=== PATIENT | male | born 1945 | race Caucasian/White ===

== ENCOUNTER → 2023-02-12 | Outpatient (CLI) | payer OTHER ==
--- NOTE | 2023-02-12 21:13 | Diagnostic Imaging Report ---
INDICATION: LEFT KNEE PAIN TECHNIQUE: Bilateral PA weightbearing, single AP, lateral and sunrise views of the left knee CORRELATION STUDY: None FINDINGS: Right knee demonstrates mild joint space narrowing medially. Lateral compartment is maintained. There is marked joint space narrowing medially with essentially complete absence of joint space. Rather prominent marginal osteophyte formation noted both medially and laterally. There is some irregularity of the articular surface along the particularly medial femoral condyle. Question small intra-articular calcified loose body. Rather significantly advanced degenerative changes with osteophyte formation distal anterior femur as well as superior and inferior pole of left patella. Small suprapatellar joint effusion. IMPRESSION: 1. Rather significantly advanced tricompartment degenerative changes left knee. Dictated by: Dictated on workstation # [id number]
== END ==
LOC: RAD FS 14:23
PROVIDERS: ATTEND Nurse Practitioner Primary Care
DX: M17.12 Unilateral primary osteoarthritis, left knee (principal)
CPT/HCPCS: 73564

== ENCOUNTER → 2023-07-04 | Outpatient (CLI) | payer OTHER ==
--- NOTE | 2023-07-04 14:34 | Diagnostic Imaging Report ---
EXAMINATION: Chest 2 view HISTORY: PRE SURGERY TESTING COMPARISON: None available. FINDINGS: Heart size and pulmonary vasculature are normal. The lungs are clear without consolidation, pleural effusion, or pneumothorax. Degenerative changes of the thoracic spine. Osseous structures are otherwise intact. IMPRESSION: 1. No acute radiographic abnormality in the chest. Dictated by: Dictated on workstation # [id number]
[2023-07-04 14:43] LABS: BASOPHILS % (AUTO) 0 % (0-10); EOSINOPHILS # (AUTO) 0.1 10^3/uL (0.0-0.3); EOSINOPHILS % (AUTO) 1 % (0-10); HEMATOCRIT 40 % (40-54); LYMPHOCYTES # (AUTO) 2.4 10^3/uL (1.0-4.0); LYMPHOCYTES % (AUTO) 24 % (12-44); MEAN CORPUSCULAR HEMOGLOBIN 29 pg (25-34); MEAN CORPUSCULAR HGB CONC 35 g/dL (32-36); MEAN CORPUSCULAR VOLUME 85 fL (80-99); MEAN PLATELET VOLUME 9.8 fL (9.0-12.2); MONOCYTES # (AUTO) 0.8 10^3/uL (0.0-1.0); MONOCYTES % (AUTO) 8 % (0-12); NEUTROPHILS # (AUTO) 6.7 10^3/uL (1.8-7.8); NEUTROPHILS % (AUTO) 67 % (42-75); PLATELET COUNT 244 10^3/uL (130-400)
[2023-07-04 14:54] LABS: CLARITY,URINE SLIGHTLY CLOUDY; COLOR,URINE YELLOW; PH,URINE 7.5 (5-9); PROTEIN,URINE 1+ (NEGATIVE)
[2023-07-04 14:55] LABS: POTASSIUM 3.4 MMOL/L (3.6-5.0)
[2023-07-04 14:55] LABS: AMORPHOUS SEDIMENT,UR RARE AMOR PHOSPHATE /LPF; BACTERIA,URINE MODERATE /HPF; BILIRUBIN,URINE NEGATIVE (NEGATIVE); GLUCOSE, URINE (UA) NEGATIVE (NEGATIVE); KETONES,URINE NEGATIVE (NEGATIVE); LEUKOCYTE ESTERASE ,URINE 3+ (NEGATIVE); NITRITE,URINE NEGATIVE (NEGATIVE); WBC,URINE >100 /HPF
[2023-07-04 14:56] LABS: CALCIUM 9.2 MG/DL (8.5-10.1)
[2023-07-04 15:01] LABS: CREATININE SERUM 0.98 MG/DL (0.60-1.30)
== END ==
LOC: RAD 14:02
PROVIDERS: ATTEND Orthopaedic Surgery
DX: Z01.89 Encounter for other specified special examinations (principal); M17.12 Unilateral primary osteoarthritis, left knee
CPT/HCPCS: 36415; 71046; 80048; 81000; 85025; 87077; 87088; 87186

== ENCOUNTER → 2023-07-16 | Outpatient (CLI) | payer OTHER ==
[~2023-07-16] MED LIST: APIX5TAB PO; AZEL23SP2 NS; DILT240T10 PO; FINA5TAB6 PO; HYDR25TA4 PO; PRAV40TA2 PO; TMSL.4C PO
--- NOTE | 2023-07-16 10:14 | Diagnostic Imaging Report ---
PROCEDURE: CT left lower extremity without contrast. TECHNIQUE: Multiple contiguous axial images were obtained through the left lower extremity without the use of intravenous contrast. Sagittal and coronal reformations were then performed. Auto Exposure Controls were utilized during the CT exam to meet ALARA standards for radiation dose reduction. INDICATION: Degenerative joint disease of the left knee. Left knee pain. COMPARISON: 02/12/2023. FINDINGS: Advanced degenerative changes are present in the left knee with joint space narrowing, marginal osteophytes, and subchondral sclerosis. No acute fracture or dislocation. Wfszj-db-hsvzpnrt joint effusion is present in the left knee. No suspicious focal osseous lesions. The left hip demonstrates normal alignment. No focal osseous lesions. The included pelvis demonstrates a partially visualized bladder calculus within a distended bladder. The prostate is enlarged. Views of the left ankle are normal without acute fracture or dislocation. IMPRESSION: 1. Advanced osteoarthritis in the left knee. Rxemj-ht-ujlzjxxn left knee joint effusion is present. 2. Prostatomegaly. 3. Partially visualized bladder calculus within a distended urinary bladder. 4. No acute fracture or dislocation in the included left lower extremity. Dictated by: Dictated on workstation # [id number]
== END ==
LOC: RAD 07:32
PROVIDERS: ATTEND Orthopaedic Surgery
DX: M17.12 Unilateral primary osteoarthritis, left knee (principal); N40.0 Benign prostatic hyperplasia without lower urinary tract symptoms; N21.0 Calculus in bladder
CPT/HCPCS: 73700

== ENCOUNTER → 2023-07-16 | Outpatient (CLI) | payer OTHER ==
[~2023-07-16] VITALS: Ht 177.8 cm; Wt 84.6 kg
[2023-07-16 08:40] VITALS: BP 132/86
== END | disposition home or self-care (01) ==
LOC: PREOP 08:11
PROVIDERS: ATTEND Orthopaedic Surgery
DX: Z01.818 Encounter for other preprocedural examination (principal)
CPT/HCPCS: 87081; 93005

== ENCOUNTER 2023-07-23 06:10 | Day surgery (SDC) | payer OTHER ==
[~2023-07-23] VITALS: Ht 177.8 cm; Wt 84.6 kg
[2023-07-23] VITALS (13 sets, daily range): BP systolic 81–153; BP diastolic 48–96
[2023-07-23] MEDS ORDERED: ceFAZolin INJECTION 2,000 MG in NS (IVPB) 50 ML 50 ML IV ONE (06:15)
[2023-07-23] MEDS ORDERED: MIDAZOLAM INJ 2 MG/2 ML VIAL ONE (07:00)
[2023-07-23] MEDS ORDERED: fentaNYL INJECTION 100 MCG/2 ML VIAL ONE (07:02)
[2023-07-23] MEDS ORDERED: BUPIVACAINE 0.5% 30 ML VIAL ONE (07:02)
[2023-07-23] MEDS: LACTATED RINGERS 1,000 ML 1,000 ML IV PRN ×4 (07:11→13:25)
--- NOTE | 2023-07-23 07:13 | Progress Note-Pre Operative ---
Pre-Operative Progress Note Date of Available H&P: Jun 28, 2023 Date H&P Reviewed: Jul 23, 2023 Time H&P Reviewed: 07:05 History & Physical: H&P Reviewed, Patient Examed, No changes noted Pre-Operative Diagnosis: Left Knee Primary Osteoarthritis KRERY DICK MD Jul 23, 2023 07:13
[2023-07-23] MEDS ORDERED: TRANEXAMIC ACID 100 MG/ML 10 ML INJECTION ONE (08:08)
[2023-07-23] MEDS ORDERED: ROPIVACAINE 5 MG/ML 30ML VIAL ONE (08:31)
[2023-07-23] MEDS ORDERED: ONDANSETRON INJECTION 4 MG/2 ML (SDV) ONE (09:29)
[2023-07-23] MEDS ORDERED: ONDANSETRON INJECTION 4 MG/2 ML (SDV) IVP PRN (11:00)
[2023-07-23] MEDS ORDERED: morphine INJ 10 MG/ML 1ML (SYR OR VIAL) IVP ONE (11:00)
[2023-07-23] MEDS ORDERED: fentaNYL INJECTION 100 MCG/2 ML VIAL IVP ONE (11:00)
--- NOTE | 2023-07-23 11:03 | Operative Report - Ortho ---
Operative Report Surgeon (s)/Computer Forensic Specialist (s) Surgeon KERRY DICK MD Computer Forensic Specialist n/a Pre-Operative Diagnosis Left Knee Primary Osteoarthritis Post-Operative Diagnosis same Operative Report Date of Procedure: Jul 23, 2023 Name of Procedure Performed: Robotic Assisted Left Total Knee Arthroplasty Description & Findings After obtaining informed consent and marking the patient in the preoperative holding area, the patient did receive IV antibiotics. Patient was taken to the operating room and anesthesia was induced. Surgical timeout was taken. The left lower extremity was prepped and draped in the usual sterile fashion. Incision was made and carried down to fascia. Arthrotomy was performed on the medial side of the patella. Patella was retracted laterally and knee was flexed. Found to have circumferential osteophtye around the distal femur as well as exposed bone in the medial compartment. ACL and anterior horns of the menisci were removed. 3.2 mm pins were placed in the medial femoral condyle for the femoral array and checkpoint was placed next to the pins. 3.2 mm pins were placed in the proximal tibia and checkpoint was placed there as well. Arrays were placed and tightened into position. The femur and tibia were then registered. Osteophytes were removed. The knee was then tensioned with varus and valgus stress in extension and flexion. Measurements were captured and adjustments were made to the preoperative plan to balance the flexion and extension gaps. Robotic arm was brought into position and all femoral cuts as well as the tibial cut were performed. Bone blocks were removed. Lamina drafter chief design was placed and the remainder of the mensici as well as posterior osteophytes were removed. The knee was trialed with a size 5 femur and a size 5 tibia with a 9 mm poly trial. It was found to come out to full extension and flexed beyond 120 degrees. It was stable to varus and valgus stress throughout its range of motion. This was accepted. Knee was brought out into extension and the patella was prepared for an inset patellar button. Osteophytes were removed from around the perimeter of the patella. Patella tracked well through the trochlear groove of the femur. Lug holes were drilled in the distal femur. Trial implants were removed. Tibial tray was pinned and punched. The cut bone surfaces were lavaged with pulsatile normal saline. Cement was mixed. Implants were opened and assembled on the back table. Cement was applied to the cut bone surface as well as the implant. A size 5 tibial component was impacted into place; excess cement was removed using the freer. A size 5 femoral component was impacted into place and excess cement was removed using a freer. Tibial tray was lavaged with saline. A 10 mm thick polyethylene component was locked into placed and the locking mechanism was checked. Knee was brought into extension. Irrisept soak was performed and then, the knee was irrigated with normal saline. The knee was once again trialed; found to come to full extension, flexed beyond 120 degrees, and was stable to varus and valgus stress. Tourniquet was dropped and electrocautery was used for hemostasis. Fascial layer was closed with #2 Stratafix. The subcutaneous layer was closed with 2-0 Vicryl. The skin was closed with barbara. Wound was dressed with xeroform, 4x4s, ABD, webril, and LADI wrap. Patient tolerated the procedure well and was stable to the recovery room. Anesthesia Type Spinal Estimated Blood Loss 150 mL Specimen(s) collected/removed None KERRY DICK MD Jul 23, 2023 11:03
[2023-07-23] MEDS ORDERED: BISACODYL 5 MG TABLET PO PRN (11:15)
[2023-07-23] MEDS ORDERED: ACETAMINOPHEN 500 MG TABLET PO PRN (11:15)
[2023-07-23] MEDS ORDERED: morphine INJ 4 MG/ML 1 ML (VIAL/SYRINGE) IVP PRN (11:15)
[2023-07-23] MEDS ORDERED: MILK OF MAGNESIA 400 MG/5 ML 30 ML UDC PO PRN (11:15)
[2023-07-23] MEDS ORDERED: GLYCOPYRROLATE INJ 0.2 MG/ML 2 ML VIAL ONE (11:39)
--- NOTE | 2023-07-23 12:50 | Diagnostic Imaging Report ---
EXAMINATION: Left knee radiographs. EXAM DATE: 07/23/2023 11:23 AM. COMPARISON: 02/12/2023. HISTORY: Post operative evaluation. TECHNIQUE: 2 views. FINDINGS: Surgical changes from total left knee arthroplasty. No acute fracture is seen. Hardware is in good alignment. Surgical changes of the overlying soft tissues. Small joint effusion, likely post operative. IMPRESSION: Surgical changes of the left knee without acute osseous abnormality. Hardware in good alignment. Dictated by: Dictated on workstation # [id number]
[2023-07-23] MEDS: NS IV 1000 ML 1,000 ML IV SCH ×2 (13:26→21:32)
--- NOTE | 2023-07-23 13:26 | Consultation ---
RICKIMARGOTHTIMI 07/23/23 1326: HPI History of Present Illness: HPI/Chief Complaint CC: s/p total knee arthroplasty HPI: Mr. Chandra is a 78 y/o male presenting s/p total knee arthroplasty 07/[address] Gutierrez. Pt was lying in bed when I saw him today. He is doing well with minimal pain. He denies any SOB or chest pain. A garcia catheter is in place and he has not had a bowel movement since surgery this morning. He reports a PMH of HTN and cardiac issues that are not fully detailed at this point in time. Pt has no concerns today regarding his medical management. Date Seen 07/23/23 Attending Physician No,Local Physician PCP Admitting Physician: Attending Physician: Alexx Gutierrez MD Referring Physician Date of Admission Home Medications & Allergies Home Medications Reviewed patient Home Medication Reconciliation performed by pharmacy medication reconciliations fill technician and/or nursing. Patients Allergies have been reviewed. Allergies Allergies Coded Allergies lisinopril (Verified Adverse Reaction, Unknown, 07/16/23) cough Past Nsqcptl-Xqfnqu-Knmosu Hx Patient Social History Tobacco Use?: No Smoking Status: Never a Smoker Substance use?: No Alcohol Use?: No Seasonal Allergies Seasonal Allergies: Yes Current Status Advance Directives: No Communicates: Verbally Primary Language: Greek Is interpretation needed?: No Sensory deficits: Vision impairment Implanted or Applied Medical D: None Past Medical History Surgeries: Orthopedic Currently Using CPAP: No Currently Using BIPAP: No Atrial Fibrillation, High Cholesterol, Hypertension Sexually Transmitted Disease: No HIV/AIDS: No Kidney Stones Arthritis Loss of Vision: Bilateral Hearing Impairment: Denies Blood Disorders: No Review of Systems Constitutional: No chills, No dizziness, No fever EENTM: no symptoms reported Respiratory: No cough, No short of breath Cardiovascular: No chest pain, No palpitations Gastrointestinal: no symptoms reported Musculoskeletal: see HPI Psychiatric/Neurological: Denies Headache Physical Exam Physical Exam Vital Signs Vital Signs - First Documented 07/23/23 06:20 Temp 36.6 Pulse 102 Resp 18 B/P (MAP) 145/96 (112) Pulse Ox 97 Capillary Refill : Less Than 3 Seconds Height, Weight, BMI Height: '" Weight: lbs. oz. kg; 26.76 BMI Method: General Appearance: No Apparent Distress HEENT: PERRL/EOMI Neck: Full Range of Motion Respiratory: Chest Non Tender, Lungs Clear, Normal Breath Sounds Cardiovascular: Regular Rate, Rhythm Gastrointestinal: Non Tender Neurologic/Psychiatric: Alert, Oriented x3, Normal Mood/Affect Skin: Normal Color Results Results/Procedures Labs Patient resulted labs reviewed. Assessment/Plan Assessment and Plan Assess & Plan/Chief Complaint Assessment: 78 y/o male s/p total knee arthroplasty 07/23 Plan: Knee pain -prn pain meds Undiagnosed Cardiac complications -continue diltiazem, apixaban, pravastatin -monitor vitals HTN -continue HCTZ Urinary retention -garcia catheter in place -continue finasteride, tamsulosin KELLYMARY DO 07/24/23 1853: HPI History of Present Illness: HPI/Chief Complaint CC: Left knee replacement HPI: This is a 78yoWM clinic patient of Dr Guiterrez who presents after an uncomplicated left knee replacement. Currently he is without complaints. No nausea. Source: patient Exam Limitations: no limitations Past Vugpmlh-Chmsit-Kpvopq Hx Patient Social History Marrital Status: Employed/Student: retired Smoking Status: Never a Smoker Past Medical History Surgeries: Orthopedic Review of Systems Constitutional: see HPI Musculoskeletal: joint pain Physical Exam Physical Exam General Appearance: No Apparent Distress, WD/WN, Chronically ill Eyes: Bilateral Eye Normal Inspection, Bilateral Eye PERRL HEENT: PERRL/EOMI, Normal ENT Inspection, Pharynx Normal Neck: Full Range of Motion, Normal Inspection, Non Tender, Supple, Carotid Bruit Respiratory: Chest Non Tender, Lungs Clear, Normal Breath Sounds, No Accessory Muscle Use, No Respiratory Distress Cardiovascular: Regular Rate, Rhythm, No Edema, No Gallop, No JVD, No Murmur, Normal Peripheral Pulses Gastrointestinal: Normal Bowel Sounds, No Organomegaly, No Pulsatile Mass, Non Tender, Soft Back: Normal Inspection, No CVA Tenderness, No Vertebral Tenderness Extremity: Normal Capillary Refill, Normal Inspection, Normal Range of Motion (except left leg), Non Tender, No Calf Tenderness, No Pedal Edema Neurologic/Psychiatric: Alert, Oriented x3, No Motor/Sensory Deficits, Normal Mood/Affect Skin: Normal Color, Warm/Dry Lymphatic: No Adenopathy Assessment/Plan Assessment and Plan Assess & Plan/Chief Complaint Left knee replacement HTN Urinary retention with BPH Supervisory-Addendum Brief Verification & Attestation Participated in pt care: history, MDM, physical Personally performed: exam, history, MDM, supervision of care Care discussed with: Medical Student Procedures: n/a Results interpretation: Verified all documentation Verification and Attestation of Medical Student E/M Service A medical student performed and documented this service in my presence. I reviewed and verified all information documented by the medical student and made modifications to such information, when appropriate. I personally performed the physical exam and medical decision making. Mary Mendoza, Jul 24, 2023,18:50 TIMI ROBISON Jul 23, 2023 13:26 MARY MENDOZA DO Jul 24, 2023 18:53
[2023-07-23] MEDS: oxyCODONE IMMEDIATE RELEASE 5 MG TABLET PO PRN ×2 (13:42→20:41)
--- NOTE | 2023-07-23 14:47 | Physical Therapy Evaluation ---
PT Evaluation-General Medical Diagnosis Admission Date 07/23/23 Medical Diagnosis: LTKA Onset Date: Jul 23, 2023 Therapy Diagnosis Therapy Diagnosis: Gait training, therapeutic exercise Precautions Precautions/Isolations: Fall Prevention, Standard Precautions Weight Bear Status Right Lower Extremity: Right Full Weight Bearing Left Lower Extremity: Left Weight Bearing/Tolerated Referral Physician: Dr. Gutierrez Reason for Referral: Evaluation/Treatment Medical History Reviewed History: Yes Social History Home: Single Level Current Living Status: Spouse Entry Into Home: Stairs Without Railing PT Steps Into Home: 2 Prior Prior Level of Function SCALE: Activities may be completed with or without assistive devices. 0-Psoqnondsx-wvwipoa completes the activity by him/herself with no assistance from a helper. 5-Set-up or Clean-up Assistance-helper sets up or cleans up; patient completes activity. [place] assists only prior to or following the activity. 4-Supervision or Touching Assistance-helper provides verbal cues and/or touching/steadying and/or contact guard assistance as patient completes activity. Assistance may be provided throughout the activity or intermittently. 3-Partial/Moderate Assistance-helper does LESS THAN HALF the effort. [place] lifts, holds or supports trunk or limbs, but provides less than half the effort. 2-Substantial/Maximal Assistance-helper does MORE THAN HALF the effort. [place] lifts or holds trunk or limbs and provides more than half the effort. 5-Ouowendei-lnvjml does ALL the effort. Patient does none of the effort to complete the activity. Or, the assistance of 2 or more helpers is required for the patient to complete the activity. If activity was not attempted, code reason: 7-Patient Refused. 9-Not Applicable-not attempted and the patient did not perform the activity before the current illness, exacerbation or injury. 10-Not Attempted due to Environmental Limitations-(lack of equipment, weather restraints, etc.). 88-Not Attempted due to Medical Conditions or Safety Concerns. Bed Mobility: 6 Transfers (B,C,W/C): 6 Gait: 6 Stairs: 6 Indoor Mobility (Ambulation): Independent Stairs: Independent Prior Device Use: None PT Evaluation-Current Subjective Patient lying supine in bed upon PT arrival, agreeable to treatment. Patient rates pain at 3/10 currently in the left knee. Objective Patient Orientation: Person, Place, Time, Situation Attachments: [place] Catheter, Polar Pack, IV ROM/Strength ROM Lower Extremities Right LE WFLs all planes. Left Knee 75 degrees flexion, lacks 15 degrees extension Strength Lower Extremities Right LE 5/5 all planes. Left knee 3/5 flexion/extension. All other Left LEs 4/5 Sensory Vision: Wears Glasses Hearing: Functional Sensation Right Lower Extremit: Intact Sensation Left Lower Extremity: Intact Transfers Roll Left to Right (QC): 4 Sit to Lying (QC): 4 Lying to Sitting/Side of Bed(Q: 4 Sit to Stand (QC): 4 Chair/Pjo-tl-Prehy Xfer(QC): 4 Gait Does the Patient Walk?: Yes Mode of Locomotion: Walk Anticipated Mode of Locomotion: Walk Walk 10 feet (QC): 4 Distance: 30' Gait Assistive Device: FWW Balance Sitting Static: Good Sitting Dynamic: Good Standing Static: Good Standing Dynamic: Good Assessment/Needs Patient performs all bed mobility and transfers with SBA. Patient ambulates 30 feet with FWW, with SBA and verbal cues for progression. Patient in chair post treatment with all needs met, nursing notified, call light in hand and in the room. Rehab Potential: Good Equipment Needs FWW PT Mask Design Engineer Goals Care Home Goals PT Care Home Goals Time Frame: Aug 23, 2023 Roll Left & Right (QC): 6 Sit to Lying (QC): 6 Lying-Sitting on Side/Bed(QC): 6 Sit to Stand (QC): 6 Chair/Cza-dn-Zahlo Xfer(QC): 6 Toilet Transfer (QC): 6 Car Transfer (QC): 6 Does the Patient Walk: Yes Walk 10 feet (QC): 6 Walk 50ft with 2 Turns (QC): 6 Walk 150 ft (QC): 6 1 Step (curb) (QC): 4 4 Steps (QC): 4 PT Plan Problem List Problem List: Activity Tolerance, Functional Strength, Safety, Balance, Gait, Transfer, Bed Mobility, ROM Treatment/Plan Treatment Plan: Continue Plan of Care Treatment Plan: Bed Mobility, Education, Functional Activity Cole, Functional Strength, Group Therapy, Gait, Safety, Therapeutic Exercise, Transfers Treatment Duration: Aug 23, 2023 Frequency: 11 times per week Estimated Hrs Per Day: .25 hour per day Patient and/or Family Agrees t: Yes Safety Risks/Education Patient Education: Gait Training, Transfer Techniques Teaching Recipient: Patient Teaching Methods: Demonstration, Discussion Response to Teaching: Verbalize Understanding, Return Demonstration Time Time In: 1410 Time Out: 1430 DATE: Jul 23, 2023 Total Billed Treatment Time: 20 Total Billed Treatment Visit, CARLITO GUIDO PT Jul 23, 2023 14:47
[2023-07-23] MEDS: ceFAZolin INJECTION 2,000 MG in NS (IVPB) 50 ML 50 ML IV SCH (16:53)
[2023-07-23] MEDS: ONDANSETRON INJECTION 4 MG/2 ML (SDV) IV PRN (20:41)
[2023-07-23] MEDS: CELECOXIB 100 MG CAPSULE PO SCH (20:41)
[2023-07-23] MEDS: DOCUSATE SODIUM 100 MG CAPSULE PO SCH (20:41)
[2023-07-23] MEDS ORDERED: APIXABAN 5 MG TABLET PO SCH (21:00)
[2023-07-23] MEDS ORDERED: ceFAZolin INJECTION 2,000 MG in NS (IVPB) 50 ML 50 ML IV SCH (21:00)
[2023-07-24] VITALS (7 sets, daily range): BP systolic 112–162; BP diastolic 76–102
[2023-07-24] MEDS: ceFAZolin INJECTION 2,000 MG in NS (IVPB) 50 ML 50 ML IV SCH (00:30)
[2023-07-24] MEDS: oxyCODONE IMMEDIATE RELEASE 5 MG TABLET PO PRN ×2 (00:33→08:06)
[2023-07-24 06:03] LABS: BASOPHILS % (AUTO) 0 % (0-10); EOSINOPHILS % (AUTO) 0 % (0-10); HEMATOCRIT 36 % (40-54); HEMOGLOBIN 12.7 g/dL (13.3-17.7); LYMPHOCYTES # (AUTO) 1.3 10^3/uL (1.0-4.0); LYMPHOCYTES % (AUTO) 9 % (12-44); MEAN CORPUSCULAR HEMOGLOBIN 30 pg (25-34); MEAN CORPUSCULAR HGB CONC 35 g/dL (32-36); MEAN CORPUSCULAR VOLUME 85 fL (80-99); MEAN PLATELET VOLUME 10.2 fL (9.0-12.2); MONOCYTES # (AUTO) 1.5 10^3/uL (0.0-1.0); MONOCYTES % (AUTO) 10 % (0-12); NEUTROPHILS # (AUTO) 11.8 10^3/uL (1.8-7.8); NEUTROPHILS % (AUTO) 80 % (42-75); PLATELET COUNT 195 10^3/uL (130-400); WHITE BLOOD COUNT 14.7 10^3/uL (4.3-11.0)
[2023-07-24] MEDS: THERAPEUTIC MULTIVITAMIN W/MINERALS TABLET PO SCH (06:04)
[2023-07-24] MEDS: NS IV 1000 ML 1,000 ML IV SCH (06:05)
[2023-07-24 06:33] LABS: ALBUMIN 3.6 GM/DL (3.2-4.5); BILIRUBIN,TOTAL 0.9 MG/DL (0.1-1.0); CALCIUM 8.5 MG/DL (8.5-10.1); CREATININE SERUM 0.79 MG/DL (0.60-1.30); POTASSIUM 3.4 MMOL/L (3.6-5.0); TOTAL PROTEIN 6.2 GM/DL (6.4-8.2)
[2023-07-24 06:53] LABS: LYMPHOCYTES % (MANUAL) 8 %; NEUTROPHILS % (MANUAL) 79 %
[2023-07-24 06:54] LABS: MONOCYTES % (MANUAL) 13 %
[2023-07-24 06:55] LABS: RBC MORPH NORMAL
--- NOTE | 2023-07-24 06:59 | Anesthesia-General Post-Op ---
General Patient Condition Mental Status/LOC: Same as Preop Cardiovascular: Satisfactory Nausea/Vomiting: Absent Respiratory: Satisfactory Pain: Controlled Complications: Absent Post Op Complications Complications None Follow Up Care/Instructions Patient Instructions None needed. Anesthesia/Patient Condition Patient Condition Patient is doing well, no complaints, stable vital signs, no apparent adverse anesthesia problems. No complications reported per nursing. LEON MA CRNA Jul 24, 2023 06:59
[2023-07-24] MEDS: dilTIAZem ER 240 MG CAPSULE PO SCH (08:04)
[2023-07-24] MEDS: ONDANSETRON INJECTION 4 MG/2 ML (SDV) IV PRN (08:04)
[2023-07-24] MEDS: TAMSULOSIN 0.4 MG (FLOMAX) CAP PO SCH (08:05)
[2023-07-24] MEDS: APIXABAN 5 MG TABLET PO SCH ×2 (08:05→20:36)
[2023-07-24] MEDS: FINASTERIDE 5 MG TABLET PO SCH (08:06)
[2023-07-24] MEDS: CELECOXIB 100 MG CAPSULE PO SCH ×2 (08:06→20:36)
[2023-07-24] MEDS: DOCUSATE SODIUM 100 MG CAPSULE PO SCH ×2 (08:06→20:36)
[2023-07-24] MEDS ORDERED: NON-FORMULARY MEDICATION 1 EA EA (Diltiazem HCl (Diltiazem ER) 240 MG) PO SCH (09:00)
--- NOTE | 2023-07-24 09:09 | Occupational Therapy Eval ---
OT Evaluation-General/PLF Medical Diagnosis Admission Date Medical Diagnosis: LTKA Onset Date: Jul 23, 2023 Therapy Diagnosis Therapy Diagnosis: weakness Precautions Precautions/Isolations: Standard Precautions Weight Bear Status Weight Bearing Restriction: Weight Bearing/Tolerated Location Restriction: L LE Referral Physician: Dr. Gutierrez Referral Reason: Self Care, Evaluation/Treatment Medical History Reviewed History: Yes Social History Home: Single Level Current Living Status: Spouse Entry Into Home: Stairs Without Railing Steps Into Home: 2 ADL-Prior Level of Function SCALE: Activities may be completed with or without assistive devices. 3-Acjpseqrnf-jdjpzlb completes the activity by him/herself with no assistance from a helper. 5-Set-up or Clean-up Assistance-helper sets up or cleans up; patient completes activity. [place] assists only prior to or following the activity. 4-Supervision or Touching Assistance-helper provides verbal cues and/or touchi ng/steadying and/or contact guard assistance as patient completes activity. Assistance may be provided throughout the activity or intermittently. 3-Partial/Moderate Assistance-helper does LESS THAN HALF the effort. [place] lifts, holds or supports trunk or limbs, but provides less than half the effort. 2-Substantial/Maximal Assistance-helper does MORE THAN HALF the effort. [place] lifts or holds trunk or limbs and provides more than half the effort. 3-Jyncwzdmg-yljhmw does ALL the effort. Patient does none of the effort to complete the activity. Or, the assistance of 2 or more helpers is required for the patient to complete the activity. If activity was not attempted, code reason: 7-Patient Refused. 9-Not Applicable-not attempted and the patient did not perform the activity before the current illness, exacerbation or injury. 10-Not Attempted due to Environmental Limitations-(lack of equipment, weather restraints, etc.). 88-Not Attempted due to Medical Conditions or Safety Concerns. Self Care: Independent Functional Cognition: Independent Drive Self: Yes OT Current Status Subjective Agreeable to participate Pain Numeric Pain Scale: 4 Mental Status/Objective Patient Orientation: Person, Place, Time, Situation Attachments: Polar Pack (warm, plugged in and on. Education for use) Current Hand Dominance: Right Upper Extremity ROM BUE ROM WFLS Upper Extremity Coordination BUE FMC/GMC WFL Upper Extremity Sensation INTACT Upper Extremity Strength 4/5 grossly ADL-Treatment ADL-Current Extra time to transition from supine to sitting EOB, min assist w/ Left sock, Transfer to stand w/ VCs and FWW. Stood over toilet w/ FWW for bladder training. No voiding. Washed hands and face at sink standing w/ FWW. Ambulation to recliner and performed 10 sit/stands for mm memory sequence. Eating (QC): 6 Oral Hygiene (QC): 5 Shower/Bathe Self (QC): 7 Upper Body Dressing (QC): 4 Lower Body Dressing (QC): 4 On/Off Footwear (QC): 4 Toileting Hygiene (QC): 4 Education OT Patient Education: Correct positioning, Energy conservation, Exercise program, Modified ADL techniques, Progress toward Goal/Update tx plan, Purpose of tx/functional activities, Reviewed precautions, Rehab process, Safety issues, Transfer techniques Teaching Recipient: Patient Teaching Methods: Demonstration, Discussion Response to Teaching: Verbalize Understanding, Reinforcement Needed OT Pets [employer] Pet Supplies Salesperson Goals Pets And Pet Supplies Salesperson Goals Eating (QC): 6 Oral Hygiene (QC): 6 Toileting Hygiene (QC): 6 Shower/Bathe Self (QC): 6 Upper Body Dressing (QC): 6 Lower Body Dressing (QC): 6 On/Off Footwear (QC): 6 1=Demonstrate adherence to instructed precautions during ADL tasks. 2=Patient will verbalize/demonstrate understanding of assistive devices/modifications for ADL. 3=Patient will improve strength/tolerance for activity to enable patient to perform ADL's. OT Education/Plan Problem List/Assessment Assessment: Decreased Activ Tolerance, Impaired Funct Balance, Impaired Self- Care Skills Discharge Recommendations Plan/Recommendations: Continue POC Treatment Plan/Plan of Care Treatment,Training & Education: Yes Patient would benefit from OT for education, treatment and training to promote independence in ADL's, mobility, safety and/or upper extremity function for ADL's. Plan of Care: ADL Retraining, Functional Mobility, Group Exercise/Act as Ind, UE Funct Exercise/Act Treatment Duration: Jul 27, 2023 Frequency: 3 times per week (3-5 times week) Rehab Potential: Good Time Start Time: 08:35 Stop Time: 09:05 DATE: Jul 24, 2023 Total Time Billed (hr/min): 30 Billed Treatment Time EVM, ADL 30 min ANY VENEGAS OT Jul 24, 2023 09:09
--- NOTE | 2023-07-24 09:29 | Progress Note - Ortho ---
Progress Note Subjective Date of Exam 07/24/23 Chief Complaint POD #1 L TKA HPI/Events since last exam had some issues with pain last PM, better this AM, has worked with therapy Review of Systems - Allergies: Coded Allergies: lisinopril (Verified Adverse Reaction, Unknown, 07/16/23) cough Home Meds Reported Medications Tamsulosin HCl (Flomax) 0.4 Mg Cap, 0.4 MG PO, CAP 07/16/23 Pravastatin Sodium (Pravastatin Sodium) 40 Mg Tablet, 40 MG PO, TAB 07/16/23 Hydrochlorothiazide (Hydrochlorothiazide) 25 Mg Tablet, 25 MG PO, TAB 07/16/23 Finasteride (Finasteride) 5 Mg Tablet, 5 MG PO, TAB 07/16/23 Diltiazem HCl (Diltiazem ER) 240 Mg Tab.er.24h, 240 MG PO DAILY, TAB 07/16/23 Azelastine/Fluticasone (Azelastin-Flutic 137-50Mcg Spr) 137 Mcg-50 Mcg/[place] S pray.pump, 23 GM NS, ML 07/16/23 Apixaban (Eliquis) 5 Mg Tablet, 5 MG PO BID, TAB 07/16/23 Objective Exam L Knee: Dressing C/D/I, +DF of ankle, no s/s of DVT Vital Signs Vital Signs Date Time Temp Pulse Resp B/P (MAP) Pulse Ox O2 Delivery O2 Flow Rate FiO2 07/24/23 07:39 37.0 119 16 162/102 (122) 94 Room Air 07/24/23 03:06 37.2 108 19 140/84 (102) 95 Room Air 07/23/23 23:39 37.2 108 19 153/92 (112) 95 Room Air 07/23/23 20:19 37.2 104 19 149/85 (106) 95 Room Air 07/23/23 20:00 Room Air 07/23/23 15:35 36.3 100 18 141/81 (101) 97 07/23/23 13:00 95 Room Air 07/23/23 12:29 35.3 97 16 133/81 (98) 95 Room Air 07/23/23 12:00 36.2 20 108/67 (81) 96 Room Air 07/23/23 12:00 Room Air 07/23/23 11:50 20 107/68 (81) 95 Room Air 07/23/23 11:45 Room Air 07/23/23 11:40 20 96/48 (64) 96 Room Air 07/23/23 11:30 Room Air 07/23/23 11:30 20 81/52 (62) 96 Room Air 07/23/23 11:20 20 90/50 (63) 99 OxyMask 2.00 07/23/23 11:15 OxyMask 2.00 07/23/23 11:10 20 100/56 (71) 98 OxyMask 3.00 07/23/23 11:00 OxyMask 6.00 07/23/23 11:00 20 94/71 (79) 98 OxyMask 6.00 07/23/23 10:51 36.2 20 96/55 (69) 98 OxyMask 6.00 07/23/23 10:51 OxyMask 6.00 I & O 07/24/23 07:00 Intake Total 2760 ml Output Total 3200 ml Balance -440 ml Lab Results Laboratory Tests 07/24/23 05:18: White Blood Count 14.7H, Red Blood Count 4.27L, Hemoglobin 12.7L, Hematocrit 36L , Mean Corpuscular Volume 85, Mean Corpuscular Hemoglobin 30, Mean Corpuscular Hemoglobin Concent 35, Red Cell Distribution Width 13.2, Platelet Count 195, Mean Platelet Volume 10.2, Immature Granulocyte % (Auto) 1, Neutrophils (%) (Auto) 80H, Lymphocytes (%) (Auto) 9L, Monocytes (%) (Auto) 10, Eosinophils (%) (Auto) 0, Basophils (%) (Auto) 0, Neutrophils # (Auto) 11.8H, Lymphocytes # (Auto) 1.3, Monocytes # (Auto) 1.5H, Eosinophils # (Auto) 0.0, Basophils # (Auto) 0.0, Immature Granulocyte # (Auto) 0.1, Neutrophils % (Manual) 79, Lymphocytes % (Manual) 8, Monocytes % (Manual) 13, Blood Morphology Comment NORMAL, Sodium Level 134L, Potassium Level 3.4L, Chloride Level 101, Carbon Dioxide Level 24, Anion Gap 9, Blood Urea Nitrogen 11, Creatinine 0.79, Estimat Glomerular Filtration Rate 92, BUN/Creatinine Ratio 14, Glucose Level 134H, Calcium Level 8.5, Corrected Calcium 8.8, Total Bilirubin 0.9, Aspartate Amino Transf (AST/SGOT) 16, Alanine Aminotransferase (ALT/SGPT) 10, Alkaline Phosphatase 52, Total Protein 6.2L, Albumin 3.6 Imaging 2 views of the left knee dated 07/23/23 were reviewed from PACS and demonstrated total knee arthroplasty with components in good position Assessment and Plan Assessment Left Knee OA s/p TKA Problem List Left Knee OA s/p TKA Plan PT/OT DVT Prophylaxis (on Eliquis prior) Plan for home with home health tomorrow Final Diagonsis Left Knee OA s/p TKA Level of the visit: Level 3 (global) KERRY DICK MD Jul 24, 2023 09:29
--- NOTE | 2023-07-24 10:18 | Progress Note ---
Subjective Date Seen by a Provider: Jul 24, 2023 Time Seen by a Provider: 10:00 Subjective/Events-last exam Much improved Light headiness when standing Urination will be monitored closely Labs reviewed Review of Systems General: Fatigue, Malaise Musculoskeletal: leg pain Objective Exam Last Set of Vital Signs Vital Signs Date Time Temp Pulse Resp B/P (MAP) Pulse Ox O2 Delivery O2 Flow Rate FiO2 07/24/23 09:44 119 158/94 (115) 07/24/23 08:00 Room Air 07/24/23 07:39 37.0 16 94 07/23/23 11:20 2.00 Capillary Refill : Less Than 3 Seconds I&O Intake and Output 07/24/23 00:00 Intake Total 2510 ml Output Total 2500 ml Balance 10 ml Intake Oral 1460 ml IV Total 1050 ml Output Urine Total 2500 ml General: Alert, Oriented X3, Cooperative, No Acute Distress Lungs: Clear to Auscultation, Normal Air Movement Heart: Regular Rate, Normal S1, Normal S2, No Murmurs Psych/Mental Status: Mental Status NL, Mood NL Results Lab Laboratory Tests 07/24/23 05:18: White Blood Count 14.7H, Red Blood Count 4.27L, Hemoglobin 12.7L, Hematocrit 36L , Mean Corpuscular Volume 85, Mean Corpuscular Hemoglobin 30, Mean Corpuscular Hemoglobin Concent 35, Red Cell Distribution Width 13.2, Platelet Count 195, Mean Platelet Volume 10.2, Immature Granulocyte % (Auto) 1, Neutrophils (%) (Auto) 80H, Lymphocytes (%) (Auto) 9L, Monocytes (%) (Auto) 10, Eosinophils (%) (Auto) 0, Basophils (%) (Auto) 0, Neutrophils # (Auto) 11.8H, Lymphocytes # (Auto) 1.3, Monocytes # (Auto) 1.5H, Eosinophils # (Auto) 0.0, Basophils # (Auto) 0.0, Immature Granulocyte # (Auto) 0.1, Neutrophils % (Manual) 79, Lymphocytes % (Manual) 8, Monocytes % (Manual) 13, Blood Morphology Comment NORMAL, Sodium Level 134L, Potassium Level 3.4L, Chloride Level 101, Carbon Dioxide Level 24, Anion Gap 9, Blood Urea Nitrogen 11, Creatinine 0.79, Estimat Glomerular Filtration Rate 92, BUN/Creatinine Ratio 14, Glucose Level 134H, Calcium Level 8.5, Corrected Calcium 8.8, Total Bilirubin 0.9, Aspartate Amino Transf (AST/SGOT) 16, Alanine Aminotransferase (ALT/SGPT) 10, Alkaline Phosphatase 52, Total Protein 6.2L, Albumin 3.6 Assessment/Plan Assessment/Plan Assess & Plan/Chief Complaint Assessment: Left knee replacement BPH Nausea DIzziness Plan: Monitor labs Pain control PT DINORA MENDOZA DO Jul 24, 2023 10:18
--- NOTE | 2023-07-24 15:04 | Physical Therapy Daily Note ---
PT Daily Note-Current Subjective Patient sitting in chair upon PT arrival, agreeable to treatment. Pain Section J - Health Conditions 1. Rarely or not at all 2. Occasionally 3. Frequently 4. Almost constantly 8. Unable to answer Pain Effect on Sleep: 2 Pain Interference with Therapy: 2 Pain Interference w/Day-to-Day: 2 Transfers SCALE: Activities may be completed with or without assistive devices. 5-Meudqumvbp-slfkbne completes the activity by him/herself with no assistance from a helper. 5-Set-up or Clean-up Assistance-helper sets up or cleans up; patient completes activity. [place] assists only prior to or following the activity. 4-Supervision or Touching Assistance-helper provides verbal cues and/or touching/steadying and/or contact guard assistance as patient completes activity. Assistance may be provided throughout the activity or intermittently. 3-Partial/Moderate Assistance-helper does LESS THAN HALF the effort. [place] lifts, holds or supports trunk or limbs, but provides less than half the effort. 2-Substantial/Maximal Assistance-helper does MORE THAN HALF the effort. [place] lifts or holds trunk or limbs and provides more than half the effort. 4-Tspybkfdu-duydkk does ALL the effort. Patient does none of the effort to complete the activity. Or, the assistance of 2 or more helpers is required for the patient to complete the activity. If activity was not attempted, code reason: 7-Patient Refused. 9-Not Applicable-not attempted and the patient did not perform the activity before the current illness, exacerbation or injury. 10-Not Attempted due to Environmental Limitations-(lack of equipment, weather restraints, etc.). 88-Not Attempted due to Medical Conditions or Safety Concerns. Sit to Stand (QC): 4 Chair/Qam-ut-Tuwiw Xfer(QC): 4 Weight Bearing Right Lower Extremity: Right Full Weight Bearing Left Lower Extremity: Left Weight Bearing/Tolerated Gait Training Does the Patient Walk?: Yes Distance: 150' Walk 10 feet (QC): 4 Walk 50 ft with 2 Turns(QC): 4 Walk 150 ft (QC): 4 Gait Assistive Device: FWW Exercises Supine Ex: Ankle pumps, Quad Set, Glut sets Supine Reps: 20 Assessment Current Status: Good Progress Patient tolerated treatment well. Performs all transfers with SBA. Patient ambulates 150 feet with FWW, with SBA. Patient in chair post treatment with all needs met, nursing notified, call light in hand. PT Detention Goals Services Executive Goals PT Services Executive Goals Time Frame: Aug 23, 2023 Roll Left & Right (QC): 6 Sit to Lying (QC): 6 Lying-Sitting on Side/Bed(QC): 6 Sit to Stand (QC): 6 Chair/Rbb-yx-Swwun Xfer(QC): 6 Toilet Transfer (QC): 6 Car Transfer (QC): 6 Does the Patient Walk: Yes Walk 10 feet (QC): 6 Walk 50ft with 2 Turns (QC): 6 Walk 150 ft (QC): 6 1 Step (curb) (QC): 4 4 Steps (QC): 4 PT Plan Treatment/Plan Treatment Plan: Continue Plan of Care Treatment Plan: Bed Mobility, Education, Functional Activity Cole, Functional Strength, Group Therapy, Gait, Safety, Therapeutic Exercise, Transfers Treatment Duration: Aug 23, 2023 Frequency: 11 times per week Estimated Hrs Per Day: .25 hour per day Patient and/or Family Agrees t: Yes Safety Risks/Education Patient Education: Gait Training, Transfer Techniques Teaching Recipient: Patient Teaching Methods: Demonstration, Discussion Response to Teaching: Verbalize Understanding, Return Demonstration Time Time In: 1003 Time Out: 1015 DATE: Jul 24, 2023 Total Billed Treatment Time: 12 Total Billed Treatment Visit, CARLITO LEI PT Jul 24, 2023 15:04
--- NOTE | 2023-07-24 15:05 | Physical Therapy Daily Note ---
PT Daily Note-Current Subjective Patient sitting in chair upon PT arrival, agreeable to treatment. Pain Section J - Health Conditions 1. Rarely or not at all 2. Occasionally 3. Frequently 4. Almost constantly 8. Unable to answer Pain Effect on Sleep: 2 Pain Interference with Therapy: 2 Pain Interference w/Day-to-Day: 2 Transfers SCALE: Activities may be completed with or without assistive devices. 8-Nuwuwpqnku-hjpatyp completes the activity by him/herself with no assistance from a helper. 5-Set-up or Clean-up Assistance-helper sets up or cleans up; patient completes activity. [place] assists only prior to or following the activity. 4-Supervision or Touching Assistance-helper provides verbal cues and/or touching/steadying and/or contact guard assistance as patient completes activity. Assistance may be provided throughout the activity or intermittently. 3-Partial/Moderate Assistance-helper does LESS THAN HALF the effort. [place] lifts, holds or supports trunk or limbs, but provides less than half the effort. 2-Substantial/Maximal Assistance-helper does MORE THAN HALF the effort. [place] lifts or holds trunk or limbs and provides more than half the effort. 0-Chgfroffe-tcetoi does ALL the effort. Patient does none of the effort to complete the activity. Or, the assistance of 2 or more helpers is required for the patient to complete the activity. If activity was not attempted, code reason: 7-Patient Refused. 9-Not Applicable-not attempted and the patient did not perform the activity before the current illness, exacerbation or injury. 10-Not Attempted due to Environmental Limitations-(lack of equipment, weather restraints, etc.). 88-Not Attempted due to Medical Conditions or Safety Concerns. Sit to Stand (QC): 4 Chair/Jnr-pb-Xheax Xfer(QC): 4 Weight Bearing Right Lower Extremity: Right Full Weight Bearing Left Lower Extremity: Left Weight Bearing/Tolerated Gait Training Does the Patient Walk?: Yes Distance: 250' Walk 10 feet (QC): 4 Walk 50 ft with 2 Turns(QC): 4 Walk 150 ft (QC): 4 Gait Persons Needed: 1 Gait Assistive Device: FWW Assessment Current Status: Good Progress Patient tolerated treatment well. Performs all transfers with SBA. Patient ambulates 150 feet with FWW, with SBA. Patient in chair post treatment with all needs met, nursing notified, call light in hand. PT Alf Goals Alf Goals PT Detonator Maker Goals Time Frame: Aug 23, 2023 Roll Left & Right (QC): 6 Sit to Lying (QC): 6 Lying-Sitting on Side/Bed(QC): 6 Sit to Stand (QC): 6 Chair/Xvo-fm-Uxqit Xfer(QC): 6 Toilet Transfer (QC): 6 Car Transfer (QC): 6 Does the Patient Walk: Yes Walk 10 feet (QC): 6 Walk 50ft with 2 Turns (QC): 6 Walk 150 ft (QC): 6 1 Step (curb) (QC): 4 4 Steps (QC): 4 PT Plan Treatment/Plan Treatment Plan: Continue Plan of Care Treatment Plan: Bed Mobility, Education, Functional Activity Cole, Functional Strength, Group Therapy, Gait, Safety, Therapeutic Exercise, Transfers Treatment Duration: Aug 23, 2023 Frequency: 11 times per week Estimated Hrs Per Day: .25 hour per day Patient and/or Family Agrees t: Yes Safety Risks/Education Patient Education: Gait Training, Transfer Techniques Teaching Recipient: Patient Teaching Methods: Demonstration, Discussion Response to Teaching: Verbalize Understanding, Return Demonstration Time Time In: 1441 Time Out: 1452 DATE: Jul 24, 2023 Total Billed Treatment Time: 11 Total Billed Treatment Visit, GT CARLITO LOTT PT Jul 24, 2023 15:05
[2023-07-25] VITALS (7 sets, daily range): BP systolic 105–133; BP diastolic 63–78
[2023-07-25] MEDS: dilTIAZem ER 240 MG CAPSULE PO SCH (04:26)
[2023-07-25 05:56] LABS: BASOPHILS % (AUTO) 0 % (0-10); EOSINOPHILS % (AUTO) 0 % (0-10); HEMATOCRIT 36 % (40-54); HEMOGLOBIN 12.8 g/dL (13.3-17.7); LYMPHOCYTES # (AUTO) 1.2 10^3/uL (1.0-4.0); LYMPHOCYTES % (AUTO) 8 % (12-44); MEAN CORPUSCULAR HEMOGLOBIN 30 pg (25-34); MEAN CORPUSCULAR HGB CONC 35 g/dL (32-36); MEAN CORPUSCULAR VOLUME 84 fL (80-99); MEAN PLATELET VOLUME 10.4 fL (9.0-12.2); MONOCYTES # (AUTO) 1.7 10^3/uL (0.0-1.0); MONOCYTES % (AUTO) 12 % (0-12); NEUTROPHILS # (AUTO) 11.9 10^3/uL (1.8-7.8); NEUTROPHILS % (AUTO) 79 % (42-75); PLATELET COUNT 190 10^3/uL (130-400)
[2023-07-25 06:14] LABS: ALBUMIN 3.7 GM/DL (3.2-4.5); BILIRUBIN,TOTAL 1.4 MG/DL (0.1-1.0); CALCIUM 9.3 MG/DL (8.5-10.1); CREATININE SERUM 0.85 MG/DL (0.60-1.30); POTASSIUM 3.4 MMOL/L (3.6-5.0); TOTAL PROTEIN 6.6 GM/DL (6.4-8.2)
[2023-07-25] MEDS: THERAPEUTIC MULTIVITAMIN W/MINERALS TABLET PO SCH (06:20)
[2023-07-25] MEDS: APIXABAN 5 MG TABLET PO SCH ×2 (08:07→20:21)
[2023-07-25] MEDS: TAMSULOSIN 0.4 MG (FLOMAX) CAP PO SCH (08:08)
[2023-07-25] MEDS: DOCUSATE SODIUM 100 MG CAPSULE PO SCH ×2 (08:08→20:21)
[2023-07-25] MEDS: FINASTERIDE 5 MG TABLET PO SCH (08:08)
[2023-07-25] MEDS: CELECOXIB 100 MG CAPSULE PO SCH ×2 (08:08→20:20)
[2023-07-25] MEDS: oxyCODONE IMMEDIATE RELEASE 5 MG TABLET PO PRN (08:09)
--- NOTE | 2023-07-25 11:41 | Physical Therapy Daily Note ---
PT Daily Note-Current Subjective Patient sitting in chair upon PT arrival, agreeable to treatment. Patient rates pain at 0/10 currently. Pain Section J - Health Conditions 1. Rarely or not at all 2. Occasionally 3. Frequently 4. Almost constantly 8. Unable to answer Pain Effect on Sleep: 2 Pain Interference with Therapy: 2 Pain Interference w/Day-to-Day: 2 Transfers SCALE: Activities may be completed with or without assistive devices. 6-Ngbeqevbfk-jflvjie completes the activity by him/herself with no assistance from a helper. 5-Set-up or Clean-up Assistance-helper sets up or cleans up; patient completes a ctivity. [place] assists only prior to or following the activity. 4-Supervision or Touching Assistance-helper provides verbal cues and/or touching/steadying and/or contact guard assistance as patient completes activity. Assistance may be provided throughout the activity or intermittently. 3-Partial/Moderate Assistance-helper does LESS THAN HALF the effort. [place] lifts, holds or supports trunk or limbs, but provides less than half the effort. 2-Substantial/Maximal Assistance-helper does MORE THAN HALF the effort. [place] lifts or holds trunk or limbs and provides more than half the effort. 4-Uymadujcy-vpndnj does ALL the effort. Patient does none of the effort to complete the activity. Or, the assistance of 2 or more helpers is required for the patient to complete the activity. If activity was not attempted, code reason: 7-Patient Refused. 9-Not Applicable-not attempted and the patient did not perform the activity before the current illness, exacerbation or injury. 10-Not Attempted due to Environmental Limitations-(lack of equipment, weather restraints, etc.). 88-Not Attempted due to Medical Conditions or Safety Concerns. Sit to Stand (QC): 4 Chair/Muu-ye-Wyinv Xfer(QC): 4 Weight Bearing Right Lower Extremity: Right Full Weight Bearing Left Lower Extremity: Left Weight Bearing/Tolerated Gait Training Does the Patient Walk?: Yes Distance: 300' Walk 10 feet (QC): 4 Walk 50 ft with 2 Turns(QC): 4 Walk 150 ft (QC): 4 Gait Assistive Device: FWW Stair Training Stair Training: Handrails/: No handrail, uses walker #of Steps: 2 1 Step (curb) (QC): 4 Stairs: Pattern: Step to Assessment Current Status: Good Progress Patient tolerated treatment well. Performs all transfers with SBA. Patient ambulates 300 feet with FWW, with SBA. Patient ascends/descends 2 steps with FWW, no handrails. Patient in chair post treatment with all needs met, nursing notified, call light in hand. PT Jail Goals Jail Goals PT Jail Goals Time Frame: Aug 23, 2023 Roll Left & Right (QC): 6 Sit to Lying (QC): 6 Lying-Sitting on Side/Bed(QC): 6 Sit to Stand (QC): 6 Chair/Czd-sn-Ffkln Xfer(QC): 6 Toilet Transfer (QC): 6 Car Transfer (QC): 6 Does the Patient Walk: Yes Walk 10 feet (QC): 6 Walk 50ft with 2 Turns (QC): 6 Walk 150 ft (QC): 6 1 Step (curb) (QC): 4 4 Steps (QC): 4 PT Plan Treatment/Plan Treatment Plan: Continue Plan of Care Treatment Plan: Bed Mobility, Education, Functional Activity Cole, Functional Strength, Group Therapy, Gait, Safety, Therapeutic Exercise, Transfers Treatment Duration: Aug 23, 2023 Frequency: 11 times per week Estimated Hrs Per Day: .25 hour per day Patient and/or Family Agrees t: Yes Safety Risks/Education Patient Education: Gait Training, Transfer Techniques Teaching Recipient: Patient Teaching Methods: Demonstration, Discussion Response to Teaching: Verbalize Understanding, Return Demonstration Time Time In: 1050 Time Out: 1100 DATE: Jul 25, 2023 Total Billed Treatment Time: 10 Total Billed Treatment Visit, GT CARLITO LOTT PT Jul 25, 2023 11:40
--- NOTE | 2023-07-25 12:20 | Progress Note ---
TIMI ROBISON 07/25/23 1220: Subjective Date Seen by a Provider: Jul 25, 2023 Time Seen by a Provider: 07:50 Subjective/Events-last exam CC: L knee pain s/p TKA HPI: Mr. Cooley is doing well today. He has been up walking the halls this morning. He has been passing gas, but not had a bowel movement yet. He reports some SOB, but thinks using the incentive spriometer has been helping. No nausea this morning and he was able to eat breakfast. Objective Exam Last Set of Vital Signs Vital Signs Date Time Temp Pulse Resp B/P (MAP) Pulse Ox O2 Delivery O2 Flow Rate FiO2 07/25/23 12:12 36.6 80 16 133/78 (96) 95 Room Air 07/23/23 11:20 2.00 Capillary Refill : Less Than 3 Seconds I&O Intake and Output 07/25/23 00:00 Intake Total 1322 ml Output Total 900 ml Balance 422 ml Intake Oral 1272 ml IV Total 50 ml Output Urine Total 900 ml # Voids 2 General: Alert, Oriented X3, Cooperative HEENT: Atraumatic Neck: Supple Lungs: Clear to Auscultation, Normal Air Movement Heart: No Murmurs Abdomen: Normal Bowel Sounds Extremities: No Edema, Normal Pulses Skin: No Significant Lesion Neuro: Normal Speech Psych/Mental Status: Mental Status NL Results Lab Laboratory Tests 07/25/23 05:40: White Blood Count 15.0H, Red Blood Count 4.31, Hemoglobin 12.8L, Hematocrit 36L, Mean Corpuscular Volume 84, Mean Corpuscular Hemoglobin 30, Mean Corpuscular Hemoglobin Concent 35, Red Cell Distribution Width 12.8, Platelet Count 190, Mean Platelet Volume 10.4, Immature Granulocyte % (Auto) 1, Neutrophils (%) (Auto) 79H, Lymphocytes (%) (Auto) 8L, Monocytes (%) (Auto) 12, Eosinophils (%) (Auto) 0, Basophils (%) (Auto) 0, Neutrophils # (Auto) 11.9H, Lymphocytes # (Auto) 1.2, Monocytes # (Auto) 1.7H, Eosinophils # (Auto) 0.0, Basophils # (Auto) 0.0, Immature Granulocyte # (Auto) 0.1, Sodium Level 131L, Potassium Level 3.4L, Chloride Level 98, Carbon Dioxide Level 25, Anion Gap 8, Blood Urea Nitrogen 14, Creatinine 0.85, Estimat Glomerular Filtration Rate 90, BUN/Creatinine Ratio 16, Glucose Level 140H, Calcium Level 9.3, Corrected Calcium 9.5, Total Bilirubin 1.4H, Aspartate Amino Transf (AST/SGOT) 16, Alanine Aminotransferase (ALT/SGPT) 11, Alkaline Phosphatase 55, Total Protein 6.6, Albumin 3.7 Assessment/Plan Assessment/Plan Assess & Plan/Chief Complaint Assessment: Mr. Cooley is a 78 y/o male s/p Left TKA Plan: L knee pain s/p TKA -DVT prophylaxis -PT/OT -plan for home health HTN -continue home meds -well controlled Tachycardia -Cardiology managing MARY MENDOZA DO 07/25/23 2006: Subjective Subjective/Events-last exam Patient doing a lot better A-fib with RVR is an issue Holding discharge for cardiology to monitor meds Objective Exam General: Alert, Oriented X3, Cooperative, No Acute Distress Lungs: Clear to Auscultation, Normal Air Movement Heart: Other (Irregular irregular tachycardic) Psych/Mental Status: Mental Status NL Assessment/Plan Assessment/Plan Assess & Plan/Chief Complaint Consult cardiology Supervisory-Addendum Brief Verification & Attestation Participated in pt care: history, MDM, physical Personally performed: exam, history, MDM, supervision of care Care discussed with: Medical Student Procedures: n/a Results interpretation: Verified all documentation Verification and Attestation of Medical Student E/M Service A medical student performed and documented this service in my presence. I reviewed and verified all information documented by the medical student and made modifications to such information, when appropriate. I personally performed the physical exam and medical decision making. Mary Mendoza, Jul 25, 2023,20:06 TIMI ROBISON Jul 25, 2023 12:20 MARY MENDOZA DO Jul 25, 2023 20:06
--- NOTE | 2023-07-25 12:32 | Occupational Ther Daily Note ---
OT Current Status-Daily Note Subjective Agreeable to participate,LADI wrap has not been removed, patient reports going home today Mental Status/Objective Patient Orientation: Person, Place, Time, Situation ADL-Treatment In recliner patietn removes slipper sock and replaces w//op ADs, VCs for pos ition to reduce pain and dressing sequence for decreased efforts and pain reduction Therapy Code Descriptions/Definitions Functional [place] Measure: 0=Not Assessed/NA 4=Minimal Assistance 1=Total Assistance 5=Supervision or Setup 2=Maximal Assistance 6=Modified [place] 3=Moderate Assistance 7=Complete IndependenceSCALE: Activities may be completed with or without assistive devices. 6-Ruyxtdzeuv-qwcskhn completes the activity by him/herself with no assistance from a helper. 5-Set-up or Clean-up Assistance-helper sets up or cleans up; patient completes activity. Newton assists only prior to or following the activity. 4-Supervision or Touching Assistance-helper provides verbal cues and/or touching/steadying and/or contact guard assistance as patient completes activity. Assistance may be provided throughout the activity or intermittently. 3-Partial/Moderate Assistance-helper does LESS THAN HALF the effort. Newton lifts, holds or supports trunk or limbs, but provides less than half the effort. 2-Substantial/Maximal Assistance-helper does MORE THAN HALF the effort. Newton lifts or holds trunk or limbs and provides more than half the effort. 0-Wfmwwfzhk-blotvj does ALL the effort. Patient does none of the effort to complete the activity. Or, the assistance of 2 or more helpers is required for the patient to complete the activity. If activity was not attempted, code reason: 7-Patient Refused. 9-Not Applicable-not attempted and the patient did not perform the activity before the current illness, exacerbation or injury. 10-Not Attempted due to Environmental Limitations-(lack of equipment, weather restraints, etc.). 88-Not Attempted due to Medical Conditions or Safety Concerns. Oral Hygiene (QC): 6 (standing at sink w/ FWW) Upper Body Dressing (QC): 6 Lower Body Dressing (QC): 5 On/Off Footwear: 6 Toileting Hygiene (QC): 6 Toilet Transfer (QC): 6 Education OT Patient Education: Correct positioning, Modified ADL techniques, Progress toward Goal/Update tx plan, Purpose of tx/functional activities, Reviewed precautions, Rehab process, Safety issues, Transfer techniques, Use of adapted equipment Teaching Methods: Demonstration, Discussion Response to Teaching: Return Demonstration OT Residential Goals Chief Pilot Goals Eating (QC): 6 Oral Hygiene (QC): 6 Toileting Hygiene (QC): 6 Shower/Bathe Self (QC): 6 Upper Body Dressing (QC): 6 Lower Body Dressing (QC): 6 On/Off Footwear (QC): 6 1=Demonstrate adherence to instructed precautions during ADL tasks. 2=Patient will verbalize/demonstrate understanding of assistive devices/modifi cations for ADL. 3=Patient will improve strength/tolerance for activity to enable patient to perform ADL's. OT Education/Plan Problem List/Assessment Assessment: No Skilled OT Needs ID'd Discharge Recommendations Plan/Recommendations: Discharge/Goals Met Treatment Plan/Plan of Care Patient would benefit from OT for education, treatment and training to promote independence in ADL's, mobility, safety and/or upper extremity function for ADL's. Plan of Care: ADL Retraining, Functional Mobility, Group Exercise/Act as Ind, UE Funct Exercise/Act Treatment Duration: Jul 27, 2023 Frequency: 3 times per week (3-5 times week) Rehab Potential: Good Time Start Time: 11:00 Stop Time: 11:11 DATE: Jul 25, 2023 Total Time Billed (hr/min): 11 Billed Treatment Time ADL 11 min ANY VENEGAS OT Jul 25, 2023 12:32
--- NOTE | 2023-07-25 15:04 | Consultation-Cardiology ---
HPI-Cardiology Cardiology Consultation: Date of Consultation 07/25/23 Time Seen by a Provider: 16:05 Date of Admission 07-23-23 Attending Physician No,Local Physician Admitting Physician Admitting Physician: Attending Physician: Kerry Dick MD Consulting Physician Suresh Nuñez MD HPI: Chief Complaint: Tachycardia Mr. Patterson is a 78 yr old male who I have seen in [facility]. He underwent left knee replacement by Dr. Dick on 07-23-23. He reports yesterday he felt an episode of fast heart rate. He reports he has a h/o tachycardia and has seen a manager hotel at [place] in the past but he does not recall the name of the provider. He states he has had a stress test and echo in the past which were re ported as normal. He states his PCP started him on Cardizem and Eliquis d/t episodes of localized, left sided, sharp stabbing chest pain and elevated HR. He reports he has had no chest pain during his hospitalization. He reports he has an appt to see a manager hotel at [place] on 08-28-23. Review of Systems-Cardiology Review of Systems Constitutional: No chills, No fever, No malaise Eyes: No vision change Ears/Nose/Throat: No epistaxis, No recent hearing loss Respiratory: As described under HPI Cardiovascular: As described under HPI Gastrointestinal: No constipation, No diarrhea, No nausea, No vomiting Genitourinary: No dysuria, No hematuria Musculoskeletal: no symptoms reported Skin: No rash on exposed areas, No ulcerations on exposed areas Psychiatric/Neurological: No anxiety, No depression, No seizure, No focal weakness, No syncope Hematologic: No bleeding abnormalities DJK-Wbyall-Mncpcw Hx Patient Social History Marrital Status: Employed/Student: retired Smoking Status: Never a Smoker Alcohol Use?: No Past Medical History PMH As described under Assessment. Family Medical History Family Medical History: He reports his mother passed from an [place] at age 65. Allergies and Home Medications Allergies Coded Allergies: lisinopril (Verified Adverse Reaction, Unknown, 07/16/23) cough Patient Home Medication List Apixaban (Eliquis) 5 Mg Tablet, 5 MG PO BID, (Reported) Entered as Reported by: Elo Watters on 07/16/23 0956 Last Action: Continued Azelastine/Fluticasone (Azelastin-Flutic 137-50Mcg Spr) 137 Mcg-50 Mcg/Berclair Berclair.pump, 23 GM NS, (Reported) Entered as Reported by: Elo Watters on 07/16/23955 Last Action: Held Diltiazem HCl (Diltiazem ER) 240 Mg Tab.er.24h, 240 MG PO DAILY, (Reported) Entered as Reported by: Elo Watters on 07/16/23955 Last Action: Converted Finasteride (Finasteride) 5 Mg Tablet, 5 MG PO, (Reported) Entered as Reported by: Elo Watters on 07/16/23955 Last Action: Continued Hydrochlorothiazide (Hydrochlorothiazide) 25 Mg Tablet, 25 MG PO, (Reported) Entered as Reported by: Elo Watters on 07/16/23955 Last Action: Continued Pravastatin Sodium (Pravastatin Sodium) 40 Mg Tablet, 40 MG PO, (Reported) Entered as Reported by: Elo Watters on 07/16/23955 Last Action: Held Tamsulosin HCl (Flomax) 0.4 Mg Cap, 0.4 MG PO, (Reported) Entered as Reported by: Elo Watters on 07/16/23955 Last Action: Continued Physical Exam-Cardiology Physical Exam Vital Signs/I&O 07/25/23 07/25/23 07/25/23 07/25/23 19:59 20:25 21:26 23:39 Temp 37.0 37.0 Pulse 125 71 68 Resp 16 16 B/P (MAP) 112/67 (82) 105/65 (78) Pulse Ox 96 96 O2 Delivery Room Air Room Air Room Air O2 Flow Rate 0.00 0.00 07/26/23 07/26/23 07/26/23 07/26/23 01:00 03:13 04:16 06:05 Temp 36.5 Pulse 119 119 114 120 Resp 18 B/P (MAP) 124/75 (91) 108/63 (78) Pulse Ox 95 95 O2 Delivery Room Air 07/26/23 07:00 Pulse 118 07/26/23 00:00 Intake Total 1470 ml Balance 1470 ml Capillary Refill : Less Than 3 Seconds Constitutional: AAO x 3, well-developed, well-nourished HEENT: PERRL, hearing is well preserved, oral hygience is good Neck: No carotid bruit; carotid pulses are 2 + bilaterally Respiratory: No accessory muscle use, No respiratory distress; chest expansion is symmetric, chest is bilaterally symmetric, lungs clear to auscultation Cardiovascular: No JVD; tachycardia, S1 and S2 Gastrointestinal: No tender; soft; No guarding; audible bowel sounds Extremities: other (mild to mod LLE swelling (post surgical)) Neurologic/Psychiatric: other (moves all extremities) Skin: No rash on exposed areas, No ulcerations on exposed areas Data Review Labs Laboratory Tests 07/26/23 05:19: White Blood Count 11.2H, Red Blood Count 4.04L, Hemoglobin 12.1L, Hematocrit 34L , Mean Corpuscular Volume 85, Mean Corpuscular Hemoglobin 30, Mean Corpuscular Hemoglobin Concent 35, Red Cell Distribution Width 12.9, Platelet Count 194, Mean Platelet Volume 10.3, Immature Granulocyte % (Auto) 1, Neutrophils (%) (Auto) 75, Lymphocytes (%) (Auto) 13, Monocytes (%) (Auto) 11, Eosinophils (%) (Auto) 0, Basophils (%) (Auto) 0, Neutrophils # (Auto) 8.4H, Lymphocytes # (Auto) 1.5, Monocytes # (Auto) 1.2H, Eosinophils # (Auto) 0.0, Basophils # (Auto) 0.0, Immature Granulocyte # (Auto) 0.1, Sodium Level 134L, Potassium Level 3.5L, Chloride Level 99, Carbon Dioxide Level 27, Anion Gap 8, Blood Urea Nitrogen 19H, Creatinine 0.85, Estimat Glomerular Filtration Rate 90, BUN/Creatinine Ratio 22, Glucose Level 122H, Calcium Level 9.2, Corrected Calcium 9.7, Magnesium Level 2.3, Total Bilirubin 0.9, Aspartate Amino Transf (AST/SGOT) 16, Alanine Aminotransferase (ALT/SGPT) 10, Alkaline Phosphatase 53, Total Protein 6.4, Albumin 3.4 Radiology NAME: TARAS KABAHUBERT [facility]manzar [facility] REC#: [id number] PT STATUS: [facility] : 1945 PHYSICIAN: KERRY DICK MD ADMIT DATE: 07/23/23 Signed Date of Exam:07/23/23 KNEE, LEFT, 2 VIEWS (AP & LAT) EXAMINATION: Left knee radiographs. EXAM DATE: 07/23/2023 11:23 AM. COMPARISON: 02/12/2023. HISTORY: Post operative evaluation. TECHNIQUE: 2 views. FINDINGS: Surgical changes from total left knee arthroplasty. No acute fracture is seen. Hardware is in good alignment. Surgical changes of the overlying soft tissues. Small joint effusion, likely post operative. IMPRESSION: Surgical changes of the left knee without acute osseous abnormality. Hardware in good alignment. Dictated by: Dictated on workstation # [id number] Dict: 07/23/23 1245 Trans: 07/23/23 1328 [id number] Interpreted by: RILEY CELIS DO Electronically signed by: RILEY CELIS DO 07/23/23 1328 ECG Impression ECG Initial ECG Rhythm: S.Tach A/P-Cardiology Assessment/Admission Diagnosis Sinus tachycardia ?h/o PAF - review of records show h/o PAF, however pt denies - OAC with Eliquis S/P Left Total Knee Arthroplasty by Dr. Dick on 07-23-23 HTN HLD - statin tx BPH Discussion and Recomendations Sinus tachycardia on EKG - advise addition of BB - Echocardiogram ?PAF - reported in history, but denied by patient - continue home dose of Eliquis - Tele Monitor lab Replace electrolytes as indicated Request records from [facility] Further recs will be based on his hospital course We would like to thank medical services for this consult ALANA EVANS Jul 25, 2023 15:04
--- NOTE | 2023-07-25 15:56 | Physical Therapy Daily Note ---
PT Daily Note-Current Subjective Patient sitting in chair upon PT arrival, agreeable to treatment. Patient rates pain at 0/10. Pain Section J - Health Conditions 1. Rarely or not at all 2. Occasionally 3. Frequently 4. Almost constantly 8. Unable to answer Pain Effect on Sleep: 2 Pain Interference with Therapy: 2 Pain Interference w/Day-to-Day: 2 Transfers SCALE: Activities may be completed with or without assistive devices. 0-Khcnnktibl-ayvrrqh completes the activity by him/herself with no assistance from a helper. 5-Set-up or Clean-up Assistance-helper sets up or cleans up; patient completes activity. [place] assists only prior to or following the activity. 4-Supervision or Touching Assistance-helper provides verbal cues and/or touching/steadying and/or contact guard assistance as patient completes activity. Assistance may be provided throughout the activity or intermittently. 3-Partial/Moderate Assistance-helper does LESS THAN HALF the effort. Beecher lifts, holds or supports trunk or limbs, but provides less than half the effort. 2-Substantial/Maximal Assistance-helper does MORE THAN HALF the effort. Beecher lifts or holds trunk or limbs and provides more than half the effort. 0-Mvfovwaag-xqjwjg does ALL the effort. Patient does none of the effort to complete the activity. Or, the assistance of 2 or more helpers is required for the patient to complete the activity. If activity was not attempted, code reason: 7-Patient Refused. 9-Not Applicable-not attempted and the patient did not perform the activity before the current illness, exacerbation or injury. 10-Not Attempted due to Environmental Limitations-(lack of equipment, weather restraints, etc.). 88-Not Attempted due to Medical Conditions or Safety Concerns. Sit to Stand (QC): 4 Chair/Mav-mk-Frlkp Xfer(QC): 4 Weight Bearing Right Lower Extremity: Right Full Weight Bearing Left Lower Extremity: Left Weight Bearing/Tolerated Gait Training Does the Patient Walk?: Yes Distance: 300' Walk 10 feet (QC): 4 Walk 50 ft with 2 Turns(QC): 4 Walk 150 ft (QC): 4 Gait Assistive Device: FWW Assessment Current Status: Fair Progress Patient tolerated treatment well. Performs all transfers with SBA. Patient ambulates 300 feet with FWW, with SBA. Patient in chair post treatment with all needs met, nursing notified, call light in hand. PT Intermediate Goals Fire Hose Curer Goals PT Intermediate Goals Time Frame: Aug 23, 2023 Roll Left & Right (QC): 6 Sit to Lying (QC): 6 Lying-Sitting on Side/Bed(QC): 6 Sit to Stand (QC): 6 Chair/Shb-yy-Ajlvs Xfer(QC): 6 Toilet Transfer (QC): 6 Car Transfer (QC): 6 Does the Patient Walk: Yes Walk 10 feet (QC): 6 Walk 50ft with 2 Turns (QC): 6 Walk 150 ft (QC): 6 1 Step (curb) (QC): 4 4 Steps (QC): 4 PT Plan Treatment/Plan Treatment Plan: Continue Plan of Care Treatment Plan: Bed Mobility, Education, Functional Activity Cole, Functional Strength, Group Therapy, Gait, Safety, Therapeutic Exercise, Transfers Treatment Duration: Aug 23, 2023 Frequency: 11 times per week Estimated Hrs Per Day: .25 hour per day Patient and/or Family Agrees t: Yes Safety Risks/Education Patient Education: Gait Training, Transfer Techniques Teaching Recipient: Patient Teaching Methods: Demonstration, Discussion Response to Teaching: Verbalize Understanding, Return Demonstration Time Time In: 1450 Time Out: 1505 DATE: Jul 25, 2023 Total Billed Treatment Time: 15 Total Billed Treatment Visit, GT CARLITO LOTT PT Jul 25, 2023 15:56
--- NOTE | 2023-07-25 16:19 | Progress Note - Ortho ---
Progress Note Subjective Date of Exam 07/25/23 Chief Complaint POD #2 L TKA HPI/Events since last exam doing well in regards to therapy and knee, has had some difficutly with runs of tachycardia early this AM Review of Systems - Allergies: Coded Allergies: lisinopril (Verified Adverse Reaction, Unknown, 07/16/23) cough Home Meds Reported Medications Tamsulosin HCl (Flomax) 0.4 Mg Cap, 0.4 MG PO, CAP 07/16/23 Pravastatin Sodium (Pravastatin Sodium) 40 Mg Tablet, 40 MG PO, TAB 07/16/23 Hydrochlorothiazide (Hydrochlorothiazide) 25 Mg Tablet, 25 MG PO, TAB 07/16/23 Finasteride (Finasteride) 5 Mg Tablet, 5 MG PO, TAB 07/16/23 Diltiazem HCl (Diltiazem ER) 240 Mg Tab.er.24h, 240 MG PO DAILY, TAB 07/16/23 Azelastine/Fluticasone (Azelastin-Flutic 137-50Mcg Spr) 137 Mcg-50 Mcg/Florence Florence.pump, 23 GM NS, ML 07/16/23 Apixaban (Eliquis) 5 Mg Tablet, 5 MG PO BID, TAB 07/16/23 Objective Exam L Knee: Incision C/D/I, +DF of ankle, no s/s of DVT Vital Signs Vital Signs Date Time Temp Pulse Resp B/P (MAP) Pulse Ox O2 Delivery O2 Flow Rate FiO2 07/25/23 12:12 36.6 80 16 133/78 (96) 95 Room Air 07/25/23 09:16 73 110/63 (79) 07/25/23 08:00 Room Air 07/25/23 07:34 36.6 129 16 127/77 (94) 95 Room Air 07/25/23 06:19 75 07/25/23 03:23 36.8 119 18 124/68 (86) 96 Room Air 07/25/23 00:35 119 07/24/23 23:44 36.8 130 18 112/76 (88) 98 Room Air 07/24/23 20:40 Room Air 07/24/23 19:51 37.0 108 16 137/91 (106) 98 Room Air 07/24/23 16:26 36.7 123 16 134/83 (100) 97 Room Air I & O 07/25/23 07:00 Intake Total 1272 ml Output Total 350 ml Balance 922 ml Lab Results Laboratory Tests 07/25/23 05:40: White Blood Count 15.0H, Red Blood Count 4.31, Hemoglobin 12.8L, Hematocrit 36L, Mean Corpuscular Volume 84, Mean Corpuscular Hemoglobin 30, Mean Corpuscular Hemoglobin Concent 35, Red Cell Distribution Width 12.8, Platelet Count 190, Mean Platelet Volume 10.4, Immature Granulocyte % (Auto) 1, Neutrophils (%) (Auto) 79H, Lymphocytes (%) (Auto) 8L, Monocytes (%) (Auto) 12, Eosinophils (%) (Auto) 0, Basophils (%) (Auto) 0, Neutrophils # (Auto) 11.9H, Lymphocytes # (Auto) 1.2, Monocytes # (Auto) 1.7H, Eosinophils # (Auto) 0.0, Basophils # (Auto) 0.0, Immature Granulocyte # (Auto) 0.1, Sodium Level 131L, Potassium Level 3.4L, Chloride Level 98, Carbon Dioxide Level 25, Anion Gap 8, Blood Urea Nitrogen 14, Creatinine 0.85, Estimat Glomerular Filtration Rate 90, BUN/Creatinine Ratio 16, Glucose Level 140H, Calcium Level 9.3, Corrected Calcium 9.5, Total Bilirubin 1.4H, Aspartate Amino Transf (AST/SGOT) 16, Alanine Aminotransferase (ALT/SGPT) 11, Alkaline Phosphatase 55, Total Protein 6.6, Albumin 3.7 Assessment and Plan Assessment Left Knee OA s/p TKA Problem List Left Knee OA s/p TKA Plan PT/OT Home with home health therapy once okay with medicine/cardiology DVT prophylaxis Final Diagonsis Left Knee OA s/p TKA Level of the visit: Level 3 (global) KERRY DICK MD Jul 25, 2023 16:19
--- NOTE | 2023-07-25 17:31 | Consultation-Cardiology ---
HPI-Cardiology Cardiology Consultation: Date of Consultation 07/25/23 Time Seen by a Provider: 17:20 Date of Admission Attending Physician No,Local Physician Admitting Physician Admitting Physician: Attending Physician: Alexx Gutierrez MD Consulting Physician DEONNA SMITH MD, MA, FACP, FACC, [facility], CCDS HPI: Chief Complaint: Tachycardia Mr. Patterson is a 78 yr old male who I have seen in [facility]. He underwent left knee replacement by Dr. Gutierrez on 07-23-23. He reports yesterday he felt an episode of fast heart rate. He reports he has a h/o tachycardia and has seen a cardiol ogist at [place] in the past but he does not recall the name of the provider. He states he has had a stress test and echo in the past which were reported as normal. He states his PCP started him on Cardizem and Eliquis d/t episodes of localized, left sided, sharp stabbing chest pain and elevated HR. He reports he has had no chest pain during his hospitalization. He reports he has an appt to see a resaw operator at [place] on 08-28-23. Review of Systems-Cardiology Review of Systems Constitutional: No chills, No fever, No malaise Eyes: No vision change Ears/Nose/Throat: No epistaxis, No recent hearing loss Respiratory: As described under HPI Cardiovascular: As described under HPI Gastrointestinal: No constipation, No diarrhea, No nausea, No vomiting Genitourinary: No dysuria, No hematuria Musculoskeletal: no symptoms reported Skin: No rash on exposed areas, No ulcerations on exposed areas Psychiatric/Neurological: No anxiety, No depression, No seizure, No focal weakness, No syncope Hematologic: No bleeding abnormalities NQS-Zxikhh-Ynzqif Hx Patient Social History Marrital Status: Employed/Student: retired Smoking Status: Never a Smoker Alcohol Use?: No Past Medical History PMH As described under Assessment. Family Medical History Family Medical History: He reports his mother passed from an [place] at age 65. Allergies and Home Medications Allergies Coded Allergies: lisinopril (Verified Adverse Reaction, Unknown, 07/16/23) cough Patient Home Medication List Home Medication List Reviewed: Yes Apixaban (Eliquis) 5 Mg Tablet, 5 MG PO BID, (Reported) Entered as Reported by: Elo Watters on 07/16/23 955 Last Action: Continued Azelastine/Fluticasone (Azelastin-Flutic 137-50Mcg Spr) 137 Mcg-50 Mcg/Dexter Dexter.pump, 23 GM NS, (Reported) Entered as Reported by: Elo Watters on 07/16/23955 Last Action: Held Diltiazem HCl (Diltiazem ER) 240 Mg Tab.er.24h, 240 MG PO DAILY, (Reported) Entered as Reported by: Elo Watters on 07/16/23955 Last Action: Converted Finasteride (Finasteride) 5 Mg Tablet, 5 MG PO, (Reported) Entered as Reported by: Elo Watters on 07/16/23955 Last Action: Continued Hydrochlorothiazide (Hydrochlorothiazide) 25 Mg Tablet, 25 MG PO, (Reported) Entered as Reported by: Elo Watters on 07/16/23955 Last Action: Continued Pravastatin Sodium (Pravastatin Sodium) 40 Mg Tablet, 40 MG PO, (Reported) Entered as Reported by: Elo Watters on 07/16/23955 Last Action: Held Tamsulosin HCl (Flomax) 0.4 Mg Cap, 0.4 MG PO, (Reported) Entered as Reported by: Elo Watters on 07/16/23955 Last Action: Continued Physical Exam-Cardiology Physical Exam Vital Signs/I&O 07/25/23 07/25/23 07/25/23 07/25/23 06:19 07:34 08:00 09:16 Temp 36.6 Pulse 75 129 73 Resp 16 B/P (MAP) 127/77 (94) 110/63 (79) Pulse Ox 95 O2 Delivery Room Air Room Air 07/25/23 12:12 Temp 36.6 Pulse 80 Resp 16 B/P (MAP) 133/78 (96) Pulse Ox 95 O2 Delivery Room Air 07/25/23 00:00 Intake Total 1072 ml Output Total 200 ml Balance 872 ml Capillary Refill : Less Than 3 Seconds Constitutional: AAO x 3, well-developed, well-nourished HEENT: PERRL, hearing is well preserved, oral hygience is good Neck: No carotid bruit; carotid pulses are 2 + bilaterally Respiratory: No accessory muscle use, No respiratory distress; chest expansion is symmetric, chest is bilaterally symmetric, lungs clear to auscultation Cardiovascular: No JVD; tachycardia, S1 and S2 Gastrointestinal: No tender; soft; No guarding; audible bowel sounds Extremities: other (mild to mod LLE swelling (post surgical)) Neurologic/Psychiatric: other (moves all extremities) Skin: No rash on exposed areas, No ulcerations on exposed areas Data Review Labs Laboratory Tests 07/25/23 05:40: White Blood Count 15.0H, Red Blood Count 4.31, Hemoglobin 12.8L, Hematocrit 36L, Mean Corpuscular Volume 84, Mean Corpuscular Hemoglobin 30, Mean Corpuscular Hemoglobin Concent 35, Red Cell Distribution Width 12.8, Platelet Count 190, Mean Platelet Volume 10.4, Immature Granulocyte % (Auto) 1, Neutrophils (%) (Auto) 79H, Lymphocytes (%) (Auto) 8L, Monocytes (%) (Auto) 12, Eosinophils (%) (Auto) 0, Basophils (%) (Auto) 0, Neutrophils # (Auto) 11.9H, Lymphocytes # (Auto) 1.2, Monocytes # (Auto) 1.7H, Eosinophils # (Auto) 0.0, Basophils # (Auto) 0.0, Immature Granulocyte # (Auto) 0.1, Sodium Level 131L, Potassium Level 3.4L, Chloride Level 98, Carbon Dioxide Level 25, Anion Gap 8, Blood Urea Nitrogen 14, Creatinine 0.85, Estimat Glomerular Filtration Rate 90, BUN/Creatinine Ratio 16, Glucose Level 140H, Calcium Level 9.3, Corrected Calcium 9.5, Total Bilirubin 1.4H, Aspartate Amino Transf (AST/SGOT) 16, Alanine Aminotransferase (ALT/SGPT) 11, Alkaline Phosphatase 55, Total Protein 6.6, Albumin 3.7 A/P-Cardiology Assessment/Admission Diagnosis Sinus tachycardia ?h/o PAF - review of records show h/o PAF, however pt denies - OAC with Eliquis S/P Left Total Knee Arthroplasty by Dr. Gutierrez on 07-23-23 HTN HLD - statin tx BPH Discussion and Recomendations Sinus tachycardia on EKG - advise addition of BB - Echocardiogram ?PAF - reported in history, but denied by patient - continue home dose of Eliquis - Tele Monitor lab Replace electrolytes as indicated Request records from [facility] Further recs will be based on his hospital course We would like to thank medical services for this consult DEONNA SMITH MD FACP FACC CCDS Jul 25, 2023 17:31
[2023-07-25] MEDS ORDERED: meTOprolol INJECTION 5 MG/5 ML VIAL IV SCH (18:00)
[2023-07-25] MEDS: meTOprolol INJECTION 5 MG/5 ML VIAL IV SCH ×2 (20:21→23:46)
[2023-07-26 03:13] VITALS: BP 124/75
[2023-07-26] MEDS: meTOprolol INJECTION 5 MG/5 ML VIAL IV SCH ×3 (03:17→08:14)
[2023-07-26 05:53] LABS: BASOPHILS % (AUTO) 0 % (0-10); EOSINOPHILS % (AUTO) 0 % (0-10); HEMATOCRIT 34 % (40-54); HEMOGLOBIN 12.1 g/dL (13.3-17.7); LYMPHOCYTES # (AUTO) 1.5 10^3/uL (1.0-4.0); LYMPHOCYTES % (AUTO) 13 % (12-44); MEAN CORPUSCULAR HEMOGLOBIN 30 pg (25-34); MEAN CORPUSCULAR HGB CONC 35 g/dL (32-36); MEAN CORPUSCULAR VOLUME 85 fL (80-99); MEAN PLATELET VOLUME 10.3 fL (9.0-12.2); MONOCYTES # (AUTO) 1.2 10^3/uL (0.0-1.0); MONOCYTES % (AUTO) 11 % (0-12); NEUTROPHILS # (AUTO) 8.4 10^3/uL (1.8-7.8); NEUTROPHILS % (AUTO) 75 % (42-75); PLATELET COUNT 194 10^3/uL (130-400); WHITE BLOOD COUNT 11.2 10^3/uL (4.3-11.0)
[2023-07-26 06:05] VITALS: BP 108/63
[2023-07-26] MEDS: THERAPEUTIC MULTIVITAMIN W/MINERALS TABLET PO SCH (06:10)
[2023-07-26 06:15] LABS: ALBUMIN 3.4 GM/DL (3.2-4.5); BILIRUBIN,TOTAL 0.9 MG/DL (0.1-1.0); CALCIUM 9.2 MG/DL (8.5-10.1); CREATININE SERUM 0.85 MG/DL (0.60-1.30); MAGNESIUM 2.3 MG/DL (1.6-2.4); POTASSIUM 3.5 MMOL/L (3.6-5.0); TOTAL PROTEIN 6.4 GM/DL (6.4-8.2)
[2023-07-26 07:36] VITALS: BP 100/62
[2023-07-26] MEDS: FINASTERIDE 5 MG TABLET PO SCH (08:14)
[2023-07-26] MEDS: CELECOXIB 100 MG CAPSULE PO SCH (08:14)
[2023-07-26] MEDS: dilTIAZem ER 240 MG CAPSULE PO SCH (08:14)
[2023-07-26] MEDS: APIXABAN 5 MG TABLET PO SCH (08:14)
[2023-07-26] MEDS: DOCUSATE SODIUM 100 MG CAPSULE PO SCH (08:14)
[2023-07-26] MEDS: TAMSULOSIN 0.4 MG (FLOMAX) CAP PO SCH (08:14)
--- NOTE | 2023-07-26 08:43 | Progress Note - Cardiology ---
Cardiology SOAP Progress Note Subjective: Sitting up in recliner States he feels well this morning Objective: I&O/Vital Signs 07/25/23 07/26/23 07/26/23 07/26/23 23:39 01:00 03:13 04:16 Temp 37.0 36.5 Pulse 68 119 119 114 Resp 16 18 B/P (MAP) 105/65 (78) 124/75 (91) Pulse Ox 96 95 O2 Delivery Room Air Room Air O2 Flow Rate 0.00 0.00 07/26/23 07/26/23 07/26/23 07/26/23 06:05 07:00 07:36 08:35 Temp 36.8 Pulse 120 118 68 Resp 17 B/P (MAP) 108/63 (78) 100/62 (75) Pulse Ox 95 96 O2 Delivery Room Air Room Air 07/26/23 00:00 Intake Total 1470 ml Balance 1470 ml Constitutional: AAO x 3, well-developed, well-nourished Respiratory: No accessory muscle use, No respiratory distress; chest expansion is symmetric, chest is bilaterally symmetric, lungs clear to auscultation Cardiovascular: No JVD; tachycardia, S1 and S2 Gastrointestional: No tender; soft; No guarding; audible bowel sounds Extremities: other (mild to mod LLE swelling (post surgical)) Neurologic/Psychiatric: other (moves all extremities) Skin: No rash on exposed areas, No ulcerations on exposed areas Results/Procedures: Labs Laboratory Tests 07/26/23 05:19: White Blood Count 11.2H, Red Blood Count 4.04L, Hemoglobin 12.1L, Hematocrit 34L , Mean Corpuscular Volume 85, Mean Corpuscular Hemoglobin 30, Mean Corpuscular Hemoglobin Concent 35, Red Cell Distribution Width 12.9, Platelet Count 194, Mean Platelet Volume 10.3, Immature Granulocyte % (Auto) 1, Neutrophils (%) (Auto) 75, Lymphocytes (%) (Auto) 13, Monocytes (%) (Auto) 11, Eosinophils (%) (Auto) 0, Basophils (%) (Auto) 0, Neutrophils # (Auto) 8.4H, Lymphocytes # (Auto) 1.5, Monocytes # (Auto) 1.2H, Eosinophils # (Auto) 0.0, Basophils # (Auto) 0.0, Immature Granulocyte # (Auto) 0.1, Sodium Level 134L, Potassium Level 3.5L, Chloride Level 99, Carbon Dioxide Level 27, Anion Gap 8, Blood Urea Nitrogen 19H, Creatinine 0.85, Estimat Glomerular Filtration Rate 90, BUN/Creatinine Ratio 22, Glucose Level 122H, Calcium Level 9.2, Corrected Calcium 9.7, Magnesium Level 2.3, Total Bilirubin 0.9, Aspartate Amino Transf (AST/SGOT) 16, Alanine Aminotransferase (ALT/SGPT) 10, Alkaline Phosphatase 53, Total Protein 6.4, Albumin 3.4 A/P: Assessment: Sinus tachycardia - improved with addition of BB tx - SR HR 70's this morning on EKG ?h/o PAF - review of records show h/o PAF, however pt denies - OAC with Eliquis S/P Left Total Knee Arthroplasty by Dr. Gutierrez on 07-23-23 HTN HLD - statin tx BPH Plan: SVT on EKG - HR improved this morning (SR 70's on EKG) - BB added - change to oral - stop HCTZ to allow BP room for addition of BB - Echocardiogram today ?PAF - reported in history, but denied by patient - continue home dose of Eliquis Hypokalemia - likely d/t chronic use of HCTZ Monitor lab Replace electrolytes as indicated Requested records from [facility] - have not received ALANA EVANS Jul 26, 2023 08:43
[2023-07-26] MEDS ORDERED: POTASSIUM CHLORIDE 20 MEQ TABLET PO ONE (08:45)
[2023-07-26 11:41] VITALS: BP 120/75
[2023-07-26] MEDS ORDERED: CELE100C PO (12:15)
[2023-07-26] MEDS ORDERED: METO50TA7 PO (12:15)
[2023-07-26] MEDS ORDERED: OXC5T PO (12:15)
--- NOTE | 2023-07-26 12:16 | Discharge Summary ---
Diagnosis/Chief Complaint Date of Admission Date of Discharge Discharge Date: Jul 26, 2023 Discharge Diagnosis Left knee replacement Atrial fibrillation with RVR requiring cardiology consult Hypertension BPH requiring ongoing in and out caths Discharge Summary Discharge Physical Examination Allergies: Coded Allergies: lisinopril (Verified Adverse Reaction, Unknown, 07/16/23) cough Vitals & I&Os Vital Signs Date Time Temp Pulse Resp B/P (MAP) Pulse Ox O2 Delivery O2 Flow Rate FiO2 07/26/23 14:16 36.9 121 18 120/75 94 Room Air 0.00 General Appearance: Alert, Oriented X3, Cooperative Respiratory: Clear to Auscultation Psych/Mental Status: Mental Status NL Hospital Course Was the Problem List Reviewed?: Yes Mr. Cooley is a 78 y/o male w/ PMH Left knee OA, BPH, HTN, HLD, PAF presenting for total knee arthroplasty performed by Dr. Gutierrez on 07/23. After surgery, patient was admitted to fourth floor. He reports he has a h/o tachycardia and has seen a live in companion at [place] in the past but he does not recall the name of the provider. He states he has had a stress test and echo in the past which were reported as normal. He states his PCP started him on Cardizem and Eliquis d/t episodes of localized, left sided, sharp stabbing chest pain and elevated HR. He reports he has had no chest pain during his hospitalization. He reports he has an appt to see a live in companion at [place] on 08-28-23. He was given metoprolol and stopped HCTZ, which improved his sinus tachycardia. An EKG and e chocardiogram was obtained on 07/26. Today Mr. Cooley is doing well. He has been able to walk the halls with no pain, has been urinating normally, and denies nausea. He denies having a bowel movement, but is passing gas. he will be discharged home later today. Labs (last 24 hrs) Laboratory Tests 07/24/23 05:18: White Blood Count 14.7H, Red Blood Count 4.27L, Hemoglobin 12.7L, Hematocrit 36L , Mean Corpuscular Volume 85, Mean Corpuscular Hemoglobin 30, Mean Corpuscular Hemoglobin Concent 35, Red Cell Distribution Width 13.2, Platelet Count 195, Mean Platelet Volume 10.2, Immature Granulocyte % (Auto) 1, Neutrophils (%) (Auto) 80H, Lymphocytes (%) (Auto) 9L, Monocytes (%) (Auto) 10, Eosinophils (%) (Auto) 0, Basophils (%) (Auto) 0, Neutrophils # (Auto) 11.8H, Lymphocytes # (Auto) 1.3, Monocytes # (Auto) 1.5H, Eosinophils # (Auto) 0.0, Basophils # (Auto) 0.0, Immature Granulocyte # (Auto) 0.1, Neutrophils % (Manual) 79, Lymphocytes % (Manual) 8, Monocytes % (Manual) 13, Blood Morphology Comment NORMAL, Sodium Level 134L, Potassium Level 3.4L, Chloride Level 101, Carbon Dioxide Level 24, Anion Gap 9, Blood Urea Nitrogen 11, Creatinine 0.79, Estimat Glomerular Filtration Rate 92, BUN/Creatinine Ratio 14, Glucose Level 134H, Calcium Level 8.5, Corrected Calcium 8.8, Total Bilirubin 0.9, Aspartate Amino Transf (AST/SGOT) 16, Alanine Aminotransferase (ALT/SGPT) 10, Alkaline Phosphatase 52, Total Protein 6.2L, Albumin 3.6 07/25/23 05:40: White Blood Count 15.0H, Red Blood Count 4.31, Hemoglobin 12.8L, Hematocrit 36L, Mean Corpuscular Volume 84, Mean Corpuscular Hemoglobin 30, Mean Corpuscular Hemoglobin Concent 35, Red Cell Distribution Width 12.8, Platelet Count 190, Mean Platelet Volume 10.4, Immature Granulocyte % (Auto) 1, Neutrophils (%) (Auto) 79H, Lymphocytes (%) (Auto) 8L, Monocytes (%) (Auto) 12, Eosinophils (%) (Auto) 0, Basophils (%) (Auto) 0, Neutrophils # (Auto) 11.9H, Lymphocytes # (Aut o) 1.2, Monocytes # (Auto) 1.7H, Eosinophils # (Auto) 0.0, Basophils # (Auto) 0.0, Immature Granulocyte # (Auto) 0.1, Sodium Level 131L, Potassium Level 3.4L, Chloride Level 98, Carbon Dioxide Level 25, Anion Gap 8, Blood Urea Nitrogen 14, Creatinine 0.85, Estimat Glomerular Filtration Rate 90, BUN/Creatinine Ratio 16, Glucose Level 140H, Calcium Level 9.3, Corrected Calcium 9.5, Total Bilirubin 1.4H, Aspartate Amino Transf (AST/SGOT) 16, Alanine Aminotransferase (ALT/SGPT) 11, Alkaline Phosphatase 55, Total Protein 6.6, Albumin 3.7 07/26/23 05:19: White Blood Count 11.2H, Red Blood Count 4.04L, Hemoglobin 12.1L, Hematocrit 34L , Mean Corpuscular Volume 85, Mean Corpuscular Hemoglobin 30, Mean Corpuscular Hemoglobin Concent 35, Red Cell Distribution Width 12.9, Platelet Count 194, Mean Platelet Volume 10.3, Immature Granulocyte % (Auto) 1, Neutrophils (%) (Auto) 75, Lymphocytes (%) (Auto) 13, Monocytes (%) (Auto) 11, Eosinophils (%) (Auto) 0, Basophils (%) (Auto) 0, Neutrophils # (Auto) 8.4H, Lymphocytes # (Auto) 1.5, Monocytes # (Auto) 1.2H, Eosinophils # (Auto) 0.0, Basophils # (Auto) 0.0, Immature Granulocyte # (Auto) 0.1, Sodium Level 134L, Potassium Level 3.5L, Chloride Level 99, Carbon Dioxide Level 27, Anion Gap 8, Blood Urea Nitrogen 19H, Creatinine 0.85, Estimat Glomerular Filtration Rate 90, BUN/Creatinine Ratio 22, Glucose Level 122H, Calcium Level 9.2, Corrected Calcium 9.7, Total Bilirubin 0.9, Aspartate Amino Transf (AST/SGOT) 16, Alanine Aminotransferase (ALT/SGPT) 10, Alkaline Phosphatase 53, Total Protein 6.4, Albumin 3.4, Magnesium Level 2.3 Pending Labs Laboratory Tests 07/24/23 05:18: White Blood Count 14.7, Red Blood Count 4.27, Hemoglobin 12.7, Hematocrit 36, Mean Corpuscular Volume 85, Mean Corpuscular Hemoglobin 30, Mean Corpuscular Hemoglobin Concent 35, Red Cell Distribution Width 13.2, Platelet Count 195, Mean Platelet Volume 10.2, Immature Granulocyte % (Auto) 1, Neutrophils (%) (Auto) 80, Lymphocytes (%) (Auto) 9, Monocytes (%) (Auto) 10, Eosinophils (%) (Auto) 0, Basophils (%) (Auto) 0, Neutrophils # (Auto) 11.8, Lymphocytes # (Auto) 1.3, Monocytes # (Auto) 1.5, Eosinophils # (Auto) 0.0, Basophils # (Auto) 0.0, Immature Granulocyte # (Auto) 0.1, Neutrophils % (Manual) 79, Lymphocytes % (Manual) 8, Monocytes % (Manual) 13, Blood Morphology Comment NORMAL, Sodium Level 134, Potassium Level 3.4, Chloride Level 101, Carbon Dioxide Level 24, Anion Gap 9, Blood Urea Nitrogen 11, Creatinine 0.79, Estimat Glomerular Filtration Rate 92, BUN/Creatinine Ratio 14, Glucose Level 134, Calcium Level 8.5, Corrected Calcium 8.8, Total Bilirubin 0.9, Aspartate Amino Transf (AST/SGOT) 16, Alanine Aminotransferase (ALT/SGPT) 10, Alkaline Phosphatase 52, Total Protein 6.2, Albumin 3.6 07/25/23 05:40: White Blood Count 15.0, Red Blood Count 4.31, Hemoglobin 12.8, Hematocrit 36, Mean Corpuscular Volume 84, Mean Corpuscular Hemoglobin 30, Mean Corpuscular Hemoglobin Concent 35, Red Cell Distribution Width 12.8, Platelet Count 190, Mean Platelet Volume 10.4, Immature Granulocyte % (Auto) 1, Neutrophils (%) (Auto) 79, Lymphocytes (%) (Auto) 8, Monocytes (%) (Auto) 12, Eosinophils (%) (Auto) 0, Basophils (%) (Auto) 0, Neutrophils # (Auto) 11.9, Lymphocytes # (Auto) 1.2, Monocytes # (Auto) 1.7, Eosinophils # (Auto) 0.0, Basophils # (Auto) 0.0, Immature Granulocyte # (Auto) 0.1, Sodium Level 131, Potassium Level 3.4, Chloride Level 98, Carbon Dioxide Level 25, Anion Gap 8, Blood Urea Nitrogen 14, Creatinine 0.85, Estimat Glomerular Filtration Rate 90, BUN/Creatinine Ratio 16, Glucose Level 140, Calcium Level 9.3, Corrected Calcium 9.5, Total Bilirubin 1.4, Aspartate Amino Transf (AST/SGOT) 16, Alanine Aminotransferase (ALT/SGPT) 11, Alkaline Phosphatase 55, Total Protein 6.6, Albumin 3.7 07/26/23 05:19: White Blood Count 11.2, Red Blood Count 4.04, Hemoglobin 12.1, Hematocrit 34, Mean Corpuscular Volume 85, Mean Corpuscular Hemoglobin 30, Mean Corpuscular Hemoglobin Concent 35, Red Cell Distribution Width 12.9, Platelet Count 194, Mean Platelet Volume 10.3, Immature Granulocyte % (Auto) 1, Neutrophils (%) (Auto) 75, Lymphocytes (%) (Auto) 13, Monocytes (%) (Auto) 11, Eosinophils (%) (Auto) 0, Basophils (%) (Auto) 0, Neutrophils # (Auto) 8.4, Lymphocytes # (Auto) 1.5, Monocytes # (Auto) 1.2, Eosinophils # (Auto) 0.0, Basophils # (Auto) 0.0, Immature Granulocyte # (Auto) 0.1, Sodium Level 134, Potassium Level 3.5, Chloride Level 99, Carbon Dioxide Level 27, Anion Gap 8, Blood Urea Nitrogen 19, Creatinine 0.85, Estimat Glomerular Filtration Rate 90, BUN/Creatinine Ratio 22, Glucose Level 122, Calcium Level 9.2, Corrected Calcium 9.7, Total Bilirubin 0.9, Aspartate Amino Transf (AST/SGOT) 16, Alanine Aminotransferase (ALT/SGPT) 10, Alkaline Phosphatase 53, Total Protein 6.4, Albumin 3.4, Magnesium Level 2.3 Discharge Home Medications: Active Scripts Active Oxyir Tablet (Oxycodone HCl) 5 Mg Tab 5 Mg PO Q4H PRN Celebrex (Celecoxib) 100 Mg Capsule 100 Mg PO BID Metoprolol Succinate 50 Mg Tab.er.24h 50 Mg PO DAILY Reported Flomax (Tamsulosin HCl) 0.4 Mg Cap 0.4 Mg PO Pravastatin Sodium 40 Mg Tablet 40 Mg PO Hydrochlorothiazide 25 Mg Tablet 25 Mg PO Finasteride 5 Mg Tablet 5 Mg PO Diltiazem ER (Diltiazem HCl) 240 Mg Tab.er.24h 240 Mg PO DAILY Azelastin-Flutic 137-50Mcg Spr (Azelastine/Fluticasone) 137 Mcg-50 Mcg/[place].pump 23 Gm NS Eliquis (Apixaban) 5 Mg Tablet 5 Mg PO BID Instructions to patient/family Please see electronic discharge instructions given to patient. DINORA MENDOZA DO Jul 26, 2023 12:16
--- NOTE | 2023-07-26 13:03 | Progress Note ---
TIMI ROBISON 07/26/23 1303: Progress Note Mr. Cooley is a 78 y/o male w/ PMH Left knee OA, BPH, HTN, HLD, PAF presenting for total knee arthroplasty performed by Dr. Gutierrez on 07/23. After surgery, patient was admitted to fourth floor. He reports he has a h/o tachycardia and has seen a junior linux administrator at [place] in the past but he does not recall the name of the provider. He states he has had a stress test and echo in the past which were reported as normal. He states his PCP started him on Cardizem and Eliquis d/t episodes of localized, left sided, sharp stabbing chest pain and elevated HR. He reports he has had no chest pain during his hospitalization. He reports he has an appt to see a junior linux administrator at [place] on 08-28-23. He was given metoprolol and stopped HCTZ, which improved his sinus tachycardia. An EKG and echocardiogram was obtained on 07/26. Today Mr. Cooley is doing well. He has been able to walk the halls with no pain, has been urinating normally, and denies nausea. He denies having a bowel movement, but is passing gas. he will be discharged home later today. MARY MENDOZA DO 07/26/232054: Supervisory-Addendum Brief Verification & Attestation Participated in pt care: history, MDM, physical Personally performed: exam, history, MDM, supervision of care Care discussed with: Medical Student Procedures: n/a Results interpretation: Verified all documentation Verification and Attestation of Medical Student E/M Service A medical student performed and documented this service in my presence. I reviewed and verified all information documented by the medical student and made modifications to such information, when appropriate. I personally performed the physical exam and medical decision making. Mary Mendoza Jul 26, 2023,20:55 TIMI ROBISON Jul 26, 2023 13:03 MARY MENDOZA DO Jul 26, 2023 20:55
--- NOTE | 2023-07-26 13:55 | D/C HH Face to Face Order ---
D/C Face to Face Orders Instructions for Patient [facility], Patient Instructions/FollowUp: WBAT on Left Leg. Use walker for assistance. Dry dressing daily to incision site. Do not get incision wet. F/U in [address] Alexx Gutierrez Physician to follow Patient: Alexx Gutierrez Discharge Diet for Home: No Restrictions Patient Data-Allergies,Ht & Wt Patient Allergies: Coded Allergies: lisinopril (Verified Adverse Reaction, Unknown, 07/16/23) cough Home Health Need/Face to Face Date of Face to Face: Jul 26, 2023 Clinical Findings: Muscle weakness, Pain with ambulation I have seen Pt [id number]: Yes Discharged To: Home Diagnosis/Conditions: Left Knee OA s/p TKA Patient is Homebound due to: Muscle weakness, Pain w/ambulation Homebound Status Due to the above stated illness, injury or surgical procedure (medical condition or diagnosis) and associated clinical findings, the patient is homebound because of his/her inability to leave home except with aid of a supportive device and/or person AND leaving the home requires a considerable and taxing effort or is medically contraindicated. Pt req the following assistanc: Walker Home Health Nursing Orders Home Health Services Order: Physical Therapy-Evaluate & Treat Home Health Infusion Therapy Line Start Date: Jul 23, 2023 Therapy Orders Therapy Specific Orders: Gait training, Increase strength/endurance, Restore ROM Certify Stmt I certify that this patient is under my care and that I, a nurse practitioner or a physician; a housekeeper and laundry assistant working with me, had a face to face encounter that - meets the physician face to face encounter requirements with this patient as dated. ALEXX GUTIERREZ MD Jul 26, 2023 13:55
[2023-07-26 14:16] VITALS: BP 120/75
--- NOTE | 2023-07-26 15:17 | Physical Therapy Daily Note ---
PT Daily Note-Current Subjective Patient lying supine in bed upon PT arrival, agreeable to treatment. Patient reports 0/10 pain currently. Pain Section J - Health Conditions 1. Rarely or not at all 2. Occasionally 3. Frequently 4. Almost constantly 8. Unable to answer Pain Effect on Sleep: 2 Pain Interference with Therapy: 2 Pain Interference w/Day-to-Day: 2 Transfers SCALE: Activities may be completed with or without assistive devices. 5-Qylkyjgizw-fqdbaig completes the activity by him/herself with no assistance from a helper. 5-Set-up or Clean-up Assistance-helper sets up or cleans up; patient completes activity. [place] assists only prior to or following the activity. 4-Supervision or Touching Assistance-helper provides verbal cues and/or touching/steadying and/or contact guard assistance as patient completes activity. Assistance may be provided throughout the activity or intermittently. 3-Partial/Moderate Assistance-helper does LESS THAN HALF the effort. [place] lift s, holds or supports trunk or limbs, but provides less than half the effort. 2-Substantial/Maximal Assistance-helper does MORE THAN HALF the effort. [place] lifts or holds trunk or limbs and provides more than half the effort. 4-Wdftiybed-twkepz does ALL the effort. Patient does none of the effort to complete the activity. Or, the assistance of 2 or more helpers is required for the patient to complete the activity. If activity was not attempted, code reason: 7-Patient Refused. 9-Not Applicable-not attempted and the patient did not perform the activity before the current illness, exacerbation or injury. 10-Not Attempted due to Environmental Limitations-(lack of equipment, weather restraints, etc.). 88-Not Attempted due to Medical Conditions or Safety Concerns. Roll Left & Right (QC): 6 Sit to Lying (QC): 6 Lying to Sitting/Side of Bed(Q: 6 Sit to Stand (QC): 6 Chair/Aay-ou-Yqhnh Xfer(QC): 6 Weight Bearing Right Lower Extremity: Right Full Weight Bearing Left Lower Extremity: Left Weight Bearing/Tolerated Gait Training Does the Patient Walk?: Yes Distance: 350' Walk 10 feet (QC): 6 Walk 50 ft with 2 Turns(QC): 6 Walk 150 ft (QC): 6 Gait Assistive Device: FWW Assessment Current Status: Excellent Progress Patient performs all bed mobility and transfers with independence. Patient ambulates 350 feet with FWW, with independence. Patient in chair post treatment with all needs met, nursing notified, call light in hand. PT Longterm Goals Manager Cafe Goals PT Longterm Goals Time Frame: Aug 23, 2023 Roll Left & Right (QC): 6 Sit to Lying (QC): 6 Lying-Sitting on Side/Bed(QC): 6 Sit to Stand (QC): 6 Chair/Ueu-cj-Nybyb Xfer(QC): 6 Toilet Transfer (QC): 6 Car Transfer (QC): 6 Does the Patient Walk: Yes Walk 10 feet (QC): 6 Walk 50ft with 2 Turns (QC): 6 Walk 150 ft (QC): 6 1 Step (curb) (QC): 4 4 Steps (QC): 4 PT Plan Treatment/Plan Treatment Plan: Discontinue PT Treatment Plan: Bed Mobility, Education, Functional Activity Cole, Functional Strength, Group Therapy, Gait, Safety, Therapeutic Exercise, Transfers Treatment Duration: Aug 23, 2023 Frequency: 11 times per week Estimated Hrs Per Day: .25 hour per day Patient and/or Family Agrees t: Yes Safety Risks/Education Patient Education: Gait Training, Transfer Techniques Time Time In: 930 Time Out: 945 DATE: Jul 26, 2023 Total Billed Treatment Time: 15 Total Billed Treatment Visit, CARLITO LEI PT Jul 26, 2023 15:17
--- NOTE | 2023-07-26 17:16 | Progress Note - Cardiology ---
Cardiology SOAP Progress Note Subjective: Feels better today No cp or palp or syncope or shortness of breath No n/v/d No focal weakness Objective: I&O/Vital Signs 07/26/23 07/26/23 07/26/23 07/26/23 06:05 07:00 07:36 08:35 Temp 36.8 Pulse 120 118 68 Resp 17 B/P (MAP) 108/63 (78) 100/62 (75) Pulse Ox 95 96 O2 Delivery Room Air Room Air 07/26/23 07/26/23 07/26/23 11:41 12:45 14:16 Temp 36.9 36.9 Pulse 112 121 121 Resp 18 18 B/P (MAP) 120/75 (90) 120/75 Pulse Ox 94 94 O2 Delivery Room Air Room Air O2 Flow Rate 0.00 07/25/23 23:59 Intake Total 1470 ml Balance 1470 ml Constitutional: AAO x 3, well-developed, well-nourished Respiratory: No accessory muscle use, No respiratory distress; chest expansion is symmetric, chest is bilaterally symmetric, lungs clear to auscultation Cardiovascular: No JVD; tachycardia, S1 and S2 Gastrointestional: No tender; soft; No guarding; audible bowel sounds Extremities: other (mild to mod LLE swelling (post surgical)) Neurologic/Psychiatric: other (moves all extremities) Skin: No rash on exposed areas, No ulcerations on exposed areas Results/Procedures: Labs Laboratory Tests 07/26/23 05:19: White Blood Count 11.2H, Red Blood Count 4.04L, Hemoglobin 12.1L, Hematocrit 34L , Mean Corpuscular Volume 85, Mean Corpuscular Hemoglobin 30, Mean Corpuscular Hemoglobin Concent 35, Red Cell Distribution Width 12.9, Platelet Count 194, Mean Platelet Volume 10.3, Immature Granulocyte % (Auto) 1, Neutrophils (%) (Auto) 75, Lymphocytes (%) (Auto) 13, Monocytes (%) (Auto) 11, Eosinophils (%) (Auto) 0, Basophils (%) (Auto) 0, Neutrophils # (Auto) 8.4H, Lymphocytes # (Auto) 1.5, Monocytes # (Auto) 1.2H, Eosinophils # (Auto) 0.0, Basophils # (Auto) 0.0, Immature Granulocyte # (Auto) 0.1, Sodium Level 134L, Potassium Level 3.5L, Chloride Level 99, Carbon Dioxide Level 27, Anion Gap 8, Blood Urea Nitrogen 19H, Creatinine 0.85, Estimat Glomerular Filtration Rate 90, B UN/Creatinine Ratio 22, Glucose Level 122H, Calcium Level 9.2, Corrected Calcium 9.7, Magnesium Level 2.3, Total Bilirubin 0.9, Aspartate Amino Transf (AST/SGOT) 16, Alanine Aminotransferase (ALT/SGPT) 10, Alkaline Phosphatase 53, Total Protein 6.4, Albumin 3.4 Laboratory Tests 07/25/23 05:40 07/26/23 05:19 A/P: Assessment: Sinus tachycardia - improved with addition of BB tx - SR HR 70's this morning on EKG - Echo on 07/26/23: LVEF 60-65%, mild MR ?h/o PAF - review of records show h/o PAF, however pt denies - OAC with Eliquis S/P Left Total Knee Arthroplasty by Dr. Gutierrez on 07-23-23 HTN HLD - statin tx BPH Plan: Tachycardia (SVT vs Sinus Tach) - HR improved this morning (SR 70's on EKG) - BB added - change to oral - stop HCTZ to allow BP room for addition of BB ?PAF - reported in history, but denied by patient - continue home dose of Eliquis Hypokalemia - likely d/t chronic use of HCTZ. Stop HCTZ Monitor lab Replace electrolytes as indicated Requested records from [place] - have not received DEONNA SMITH MD FACP [facility] Jul 26, 2023 17:16
== END 2023-07-26 14:16 | disposition home health service (06) ==
LOC: SDC 06:10 → 4TH 11:58 → SDC 07-26 14:16
PROVIDERS: ATTEND Orthopaedic Surgery
DX: M17.12 Unilateral primary osteoarthritis, left knee (principal); I10 Essential (primary) hypertension; N40.1 Benign prostatic hyperplasia with lower urinary tract symptoms; R33.8 Other retention of urine; R00.0 Tachycardia, unspecified; E78.5 Hyperlipidemia, unspecified; E87.6 Hypokalemia; Z88.8 Allergy status to other drugs, medicaments and biological substances
CPT/HCPCS: 36415; 73560; 80053; 83735; 85025; 93005; 93306